=== PATIENT | male | born 1960 | race Caucasian/White ===

== ENCOUNTER 2021-03-20 11:09 | Outpatient (CLI) | payer OTHER, SELFPAY ==
--- NOTE | 2021-03-20 11:28 | ECG_ITS ---
Measurements Intervals [place] Rate: 65 P: 7 NE: 240 QRS: 31 QRSD: 106 T: 36 QT: 392 QTc: 410 Interpretive Statements SINUS RHYTHM WITH FIRST DEGREE AV BLOCK BASELINE ARTIFACT- I, II ,AVR, AVF ABNORMAL ECG Electronically Signed On 03-20-2021 19:38:19 [employer] ADMINISTRATOR by Dawit Willingham D.O.
== END 2021-03-20 11:10 | disposition home or self-care (01) ==
PROVIDERS: PCP Internal Medicine; Visit Provider Internal Medicine
DX: R03.0 Elevated blood-pressure reading, without diagnosis of hypertension (principal); I44.0 Atrioventricular block, first degree
CPT/HCPCS: 93005

== ENCOUNTER 2021-05-19 00:34 | Day surgery (SDC) | payer OTHER, SELFPAY ==
[2021-05-05 11:22] VITALS: BMI 32.5
--- NOTE | 2021-05-19 08:29 | WPDANESEPPF ---
Anes - Initial Pre Proc Eval Procedure: Operation Date: 05/19/21 11:00 Proposed Procedures p Esophagogastroduodenoscopy & Screening Colonoscopy - David Fountain MD Date/Time: 05/19/21 08:29 Surgeon: David Fountain MD Pre Op Diagnosis: GERD, Neoplasm screening Patient Data Age: 60 Gender: M Height: 1.83 m Weight: 109 kg Allergies Allergy/AdvReac Type Severity Reaction Status Date / Time No Known Allergies Allergy Verified 05/19/21 10:05 Home Medications Medication Instructions Recorded Confirmed Type ibuprofen 200 mg capsule 200 mg PO Q6H PRN 03/10/21 05/19/21 History omeprazole 20 mg capsule,delayed 20 mg PO DAILY #90 cap 03/10/21 05/19/21 Rx release rosuvastatin 20 mg tablet 20 mg PO DAILY #90 tablet 03/24/21 05/19/21 Rx ferrous sulfate 325 mg (65 mg 325 mg PO BID 90 Days #180 tablet 04/28/21 05/19/21 Rx iron) tablet lisinopril 20 mg tablet 20 mg PO DAILY #90 tablet 04/28/21 05/19/21 Rx sildenafil 100 mg tablet 100 mg PO DAILY PRN #30 tablet 04/28/21 05/19/21 Rx cholecalciferol (vitamin D3) 1,250 50,000 unit PO WEEKLY #10 cap 05/07/21 05/19/21 Rx mcg (50,000 unit) capsule Patient hx anesthesia problems: none Family hx anesthesia problems: none Results Review: All pre-operative results and documents have been reviewed as part of the pre-operative evaluation. [facility] Past Medical History Medical History (Updated 05/16/21 @ 12:20 by Kishan Velazquez DO) Dyslipidemia First degree AV block GERD (gastroesophageal reflux disease) Hypertension Leg pain Numbness Painful joint Snoring Vasectomy planned Family History Family History Father Cancer Mother Cancer Social History Social History (Updated 04/28/21 @ 10:00 by Karuna Chaney) Smoking packs per day: 0.25 Smoking cigarettes per day: 5.0 Years smoked: 10 Smoking pack-years: 2.50 Smoking status: Former smoker Tobacco type: cigarettes Second hand tobacco smoke exposure: No Smoking end date: 05/10/97 Alcohol intake: current Drinks per week: 20 Alcohol use details: Beer 6 a day Substance use: never Substance use type: does not use Living arrangements: with family Gender identity (if verbalized by the patient): Male Spiritual care concerns: No Anes - Eval Final PreProcedure Day of Procedure 05/19/21 08:29 Patient weight: obese Heart: regular rate and rhythm Lungs: clear to auscultation and normal air movement Airway: Mallampati scale class II Neurological: alert and oriented Last oral intake: >/= 8 hours ASA classification: III Emergent: no Anesthetic plan: proceed Anesthesia type and monitoring: general GIVS and standard monitoring Results Review: All pre-operative results and documents have been reviewed as part of the pre-operative evaluation. Informed Consent: The patient's anesthetic plan and its attendant risks and benefits were discussed with the patient/family/POA. Questions were solicited and answers provided to the satisfaction of the patient/family/POA.
[2021-05-19 10:06] VITALS: BP 118/86; PULSE 88; RESP 18; TEMP 36.1; O2SAT 98; BMI 31.6
[2021-05-19] MEDS: LACTATED RINGERS 1,000 ML 150 ML IV CONT (10:18)
--- NOTE | 2021-05-19 10:27 | PM.HPGS ---
History of Present Illness History of Present Illness Consent: Risks, benefits, and alternatives have been discussed and questions answered. Patient agrees to proceed with procedure. Chief complaint: GERD, Neoplasm screening Narrative: Brennan Varner is a 60 year old male with mild JAMA (microcytic), denies overt gib but never had scopes. Using omeprazole because gerd. Review of Systems Constitutional: Constitutional: Denies headache(s) and Denies weakness Eyes: Eyes: Denies blurry vision ENT: Reports Normal hearing present, Denies headache(s) and Denies neck pain Cardiovascular: Cardiovascular: Denies chest pain and Denies dyspnea Respiratory: Respiratory: Denies dyspnea Gastrointestinal: Gastrointestinal: Reports no additional gastrointestinal complaints Genitourinary: Genitourinary: Denies dysuria Musculoskeletal: Musculoskeletal: Denies neck pain Integumentary/Breasts: Skin/Breast: Denies dry skin Neurologic: Reports Normal hearing present, Denies headache(s) and Denies weakness Psychiatric: Psychiatric: Denies anxiety Endocrine: Endocrine: Denies change in body appearance Hematologic/Lymphatic: Hematologic/Lymphatic: Denies easy bleeding Allergic/Immunologic: Allergic/Immunologic: Denies urticaria PMFSH Past Medical History Medical History (Updated 05/16/21 @ 12:20 by Kishan Velazquez DO) Dyslipidemia First degree AV block GERD (gastroesophageal reflux disease) Hypertension Leg pain Numbness Painful joint Snoring Vasectomy planned Family History Family History Father Cancer Mother Cancer Social History Social History (Updated 04/28/21 @ 10:00 by Karuna Chaney) Smoking packs per day: 0.25 Smoking cigarettes per day: 5.0 Years smoked: 10 Smoking pack-years: 2.50 Smoking status: Former smoker Tobacco type: cigarettes Second hand tobacco smoke exposure: No Smoking end date: 05/10/97 Alcohol intake: current Drinks per week: 20 Alcohol use details: Beer 6 a day Substance use: never Substance use type: does not use Living arrangements: with family Gender identity (if verbalized by the patient): Male Spiritual care concerns: No Meds Home Medications and Allergies Home Medications Medication Instructions Recorded Confirmed Type ibuprofen 200 mg capsule 200 mg PO Q6H PRN 03/10/21 05/19/21 History omeprazole 20 mg capsule,delayed 20 mg PO DAILY #90 cap 03/10/21 05/19/21 Rx release rosuvastatin 20 mg tablet 20 mg PO DAILY #90 tablet 03/24/21 05/19/21 Rx ferrous sulfate 325 mg (65 mg 325 mg PO BID 90 Days #180 tablet 04/28/21 05/19/21 Rx iron) tablet lisinopril 20 mg tablet 20 mg PO DAILY #90 tablet 04/28/21 05/19/21 Rx sildenafil 100 mg tablet 100 mg PO DAILY PRN #30 tablet 04/28/21 05/19/21 Rx cholecalciferol (vitamin D3) 1,250 50,000 unit PO WEEKLY #10 cap 05/07/21 05/19/21 Rx mcg (50,000 unit) capsule Allergies Allergy/AdvReac Type Severity Reaction Status Date / Time No Known Allergies Allergy Verified 05/19/21 10:05 Vital Signs Vital Signs - 24 hr 05/19/21 10:06 Temperature 97 F L Pulse Rate 88 Respiratory Rate 18 Blood Pressure 118/86 Pulse Oximetry 98 Exam Const: General: comfortable and no acute distress HENMT: General nose exam: Normal nares present Eyes: General: appearance normal, both eyes and all related structures Neck: Neck: no JVD Resp: Auscultation: clear to auscultation bilaterally Cardio: Rate: regular rate Rhythm: regular rhythm GI: Inspection: non-distended GI Palp: Yes Soft to palpation Skin: General skin exam: normal color Neuro: General: gait normal Speech: normal speech Extrem: General: normal to inspection Psych: Mental Status: mental status grossly normal Assessment and Plan Assessment and plan (1) GERD (gastroesophageal reflux disease): Qualifiers: Esophagitis presence: esophagit
[2021-05-19 11:04] VITALS: BP 119/79; PULSE 70; RESP 19; O2SAT 99
--- NOTE | 2021-05-19 11:12 | SUR.OPER ---
EGD: Start 10:37, End 10:40. Colon: Start 10:44, End 11:00
[2021-05-19 11:14] VITALS: BP 122/86; PULSE 71; RESP 22; O2SAT 98
[2021-05-19 11:24] VITALS: BP 138/95; PULSE 63; RESP 20; O2SAT 98
== END 2021-05-19 11:38 | disposition home or self-care (01) ==
PROVIDERS: PCP Internal Medicine; Visit Provider Internal Medicine Gastroenterology
PROC: 0DJ08ZZ Inspection of Upper Intestinal Tract, Via Natural or Artificial Opening Endoscopic (ICD-10-PCS; CPT 43235; principal; 2021-05-19 11:00)
DX: D50.9 Iron deficiency anemia, unspecified (principal); C18.6 Malignant neoplasm of descending colon; K57.30 Diverticulosis of large intestine without perforation or abscess without bleeding; K64.8 Other hemorrhoids; K29.50 Unspecified chronic gastritis without bleeding; D12.0 Benign neoplasm of cecum; K62.1 Rectal polyp; K21.9 Gastro-esophageal reflux disease without esophagitis; E78.5 Hyperlipidemia, unspecified; I44.0 Atrioventricular block, first degree; I10 Essential (primary) hypertension; Z87.891 Personal history of nicotine dependence; E66.9 Obesity, unspecified; Z68.31 Body mass index [BMI] 31.0-31.9, adult
CPT/HCPCS: 45385; 45380; 45381; 43239; 88305; J2704; J7120

== ENCOUNTER 2021-05-28 06:52 | Outpatient (CLI) | payer OTHER, SELFPAY ==
--- NOTE | ~2021-05-28 | CT_ITS ---
EXAMINATION: CT chest abdomen pelvis w con DATE: 05/28/2021 07:30 INDICATION: Malignant neoplasm of ascending colon TECHNIQUE: Computed tomography (CT) of the chest, abdomen, and pelvis was performed with 100 cc Omnip aque 350 intravenous contrast. Automated exposure control and iterative reconstruction technique were employed. Exam dose: 1554.90 mGy-cm total exam DLP. COMPARISON: None FINDINGS: CHEST CT: No pulmonary infiltrate or consolidation or suspicious pulmonary mass lesion. Normal heart size. No pericardial or pleural effusion. No thoracic aortic aneurysm or dissection. The re is atherosclerotic change of the thoracic aorta and great vessels. Homogeneous enhancement of normal size thyroid gland. No hilar or mediastinal mass lesion or lymphade nopathy. ABDOMEN/PELVIS CT: The gallbladder appears unremarkable. No hepatic, splenic, pancreatic, and adrenal or renal space-occ upying mass lesion is evident. No bile duct or pancreatic duct dilatation. No urinary tract calculus or hydroureteronephrosis. The urinary bladder is unremarkable. Minimal prostate gland calcification. Normal appendix. There are numerous diverticula of the sigmoid and descending colon; no CT evidence of diverticulitis. There is prominent soft tissue thickening of the proximal descending colon near the splenic flexure, measuring up to approximately 5.7 x 7.6 cm dimension, consistent with clinical history of malignant n eoplasm of the descending colon. Occasional adjacent lymph nodes measuring up to 8.6 x 11 mm, suggest ing local metastatic lymphadenopathy. Additionally, there is mild fat stranding adjacent to this mass which may represent local pericolic fat invasion. No bowel obstruction or intraperitoneal free air. There is atherosclerotic calcification of the abdominal aorta, iliac arteries, origins of the renal a rteries. No abdominal aortic aneurysm or dissection. No periaortic or aortocaval or pelvic lymphadeno nasra. Small fat-containing right inguinal hernia. Degenerative disc disease of the lower cervical spine. Diffuse idiopathic skeletal hyperostosis of th e thoracic spine. Prominent bilateral hip osteoarthritis. No suspicious osteolytic or osteoblastic le sions are noted. IMPRESSION: Large mass of the proximal descending colon consistent with given clinical diagnosis of adenocarcinoma of the descending colon, with suggestion of adjacent pericolic fat invasion and up to 8.6 x 11 mm adjacent metastatic lymphadenopathy Diverticulosis of the left colon; no CT evidence of diverticulitis Reviewed, dictated and finalized at [facility] Reviewed, dictated and finalized at [facility] WELDER IMPRESSION: Large mass of the proximal descending colon consistent with given clinical diagnosis of adenocarcinoma of the descending colon, with suggestion o f adjacent pericolic fat invasion and up to 8.6 x 11 mm adjacent metastatic lym phadenopathy Diverticulosis of the left colon; no CT evidence of diverticulitis
[2021-05-28 07:21] LABS: Estimated Glomerular Filt Rate > 60
== END 2021-05-28 06:53 | disposition home or self-care (01) ==
LOC: ANHIMG 06:55
PROVIDERS: PCP Internal Medicine; Visit Provider Surgery
DX: C18.6 Malignant neoplasm of descending colon (principal); C77.2 Secondary and unspecified malignant neoplasm of intra-abdominal lymph nodes; K57.90 Diverticulosis of intestine, part unspecified, without perforation or abscess without bleeding
CPT/HCPCS: 71260; 74177; Q9967

== ENCOUNTER 2021-06-17 10:04 | Outpatient (CLI) | payer OTHER, SELFPAY ==
[2021-06-17 12:00] LABS: Basophils Percent Auto 0.5 % (0.2-1.2); Eosinophils Absolute Auto 0.1 K/mm3 (0-0.3); Eosinophils Percent Auto 1.4 % (0-4.4); Hematocrit 43.4 % (42.0-52.0); Hemoglobin 14.6 g/dL (14.0-18.0); Immature Granulocyte Absolute 0.05 K/mm3 (0.00-0.031); Immature Granulocyte Percent A 0.6 % (0-0.5); Lymphocytes Absolute Auto 1.33 K/mm3 (0.9-3.2); Lymphocytes Percent Auto 15.6 % (18.3-44.2); Mean Corpuscular HGB Conc 33.6 g/dl (32-36); Mean Corpuscular Hemoglobin 29.9 pg (26-34); Mean Corpuscular Volume 88.8 fl (80-100); Mean Platelet Volume 9.1 fl (7.4-10.4); Monocytes Absolute Auto 0.8 K/mm3 (0.1-0.6); Monocytes Percent Auto 9.7 % (2.6-8.5); Neutrophils Absolute Auto 6.2 K/mm3 (1.3-6.7); Neutrophils Percent Auto 72.2 % (45.5-73.1); Platelet Count Result 168 k/mm3 (150-375); Red Blood Count 4.89 M/mm3 (4.6-6.20); Red Cell Distribution Width 16.1 % (11.5-14.5); White Blood Count 8.5 K/mm3 (4.5-10.0)
[2021-06-17 12:18] LABS: Alanine Aminotransferase 23 U/L (4-50); Albumin Level 4.5 g/dL (3.5-5.1); Alkaline Phosphatase 74 U/L (38-126); Anion Gap 7 mmol/L (8-16); Aspartate Amino Transferase 25 U/L (17-59); Bilirubin,Total 0.6 mg/dL (0.2-1.3); Blood Urea Nitrogen 11 mg/dL (9-20); Calcium 9.7 mg/dL (8.4-10.2); Carbon Dioxide 23 mmol/L (22-30); Chloride 104 mmol/L (98-107); Estimated Glomerular Filt Rate > 60; Glucose 117 mg/dL (65-110); Potassium 4.2 mmol/L (3.4-5.0); Sodium 134 mmol/L (137-145)
--- NOTE | 2021-06-19 12:12 | PCWOUND ---
WOCN NOTE patient to wound center for ostomy marking for upcoming surgery on 06/23/21. Both sides of abdomen assessed for optimal stoma site. A black X applied and then covered with a tegaderm.
== END 2021-06-17 10:05 | disposition home or self-care (01) ==
LOC: ANHSURGERY 10:07
PROVIDERS: PCP Internal Medicine; Visit Provider Surgery
DX: C18.6 Malignant neoplasm of descending colon (principal)
CPT/HCPCS: 36415; 80053; 82378; 85025; 86850; 86900; 86901

== ENCOUNTER 2021-06-23 10:43 | Inpatient (IN) | payer OTHER, SELFPAY ==
[2021-06-17 10:22] VITALS: BP 183/86; PULSE 60; RESP 16; TEMP 36.3; O2SAT 98; BMI 32.7
--- NOTE | 2021-06-17 10:37 | PC.NURSE ---
Report to the Outpatient Waiting Room, entrance under the green pavilion located off [facility], at time __6:00AM on date ___06/23/21____. OR Time: ___7:30AM . - You will be asked a series of questions to screen for COVID 19 for your protection. - A mask is required within the hospital. - No visitors are allowed at this time. Preoperative COVID Testing Requirements: No COVID Test needed if: (proof is required; if not received patient will have Rapid Test prior to entry) - Patient has received COVID Vaccine at least 14 days prior to procedure date or - Patient has positive COVID test result within last 90 days of surgery date. COVID Test needed if above criteria is not met If not COVID vaccinated a COVID test must be conducted within 72 hours of surgery and patient is asked to isolate self from time of testing until procedure. You will go to the [facility] for your COVID testing. The [facility] is located at the corner of [address] [facility]. You will only be called if COVID results are positive and your surgeon may reschedule your elective surgery date. Patients may have clear liquids (water, carbonated beverages, clear teas, apple juice) until 3 hours prior to surgery with a maximum of 20 ounces. - No food from midnight until time of surgery - Infants may have breast milk until 4 hours before surgery, infant formula 6 hours prior to surgery. - Children will be allowed to drink immediately following surgery. If applicable, please bring a bottle or sippy cup to assist with drinking. Juice, water, soda, and popsicles are readily available. For infants on formula, please bring formula the day of surgery. Pacifiers are allowed. Take the following medications with a SIP of water the morning of surgery: ___NONE Medications to discontinue per physician HOLD VITAMIN/SUPPLEMENTS 3 DAYS PRE-OP Date to take last dose___06/20/21 ENSURE BUNDLE, ANTIBIOTIC INSTRUCTIONS & BOWEL PREP INSTRUCTIONS PER DR MILES Please no make-up, nail indonesian, hairspray, perfume, deodorant, or body powder the day of surgery. No jewelry (including any body piercings) or valuables the day of surgery, leave them at home. Please take a shower or bath the night before, or the morning of, surgery with an antibacterial soap. Wear comfortable, loose fitting clothing. Children are encouraged to wear pajamas. - Jewelry must be removed prior to entering the operating room. Rings and piercings that are not removed may be cut off. - The hospital will not accept responsibility for valuables. - Please leave all valuables, including medications, at home the day of surgery. HIBICLENS SHOWER DAY BEFORE AND MORNING OF SURGERY If you are going home after surgery, a licensed waste collection driver must drive you home. - NO public transportation without another adult. - We recommend that an adult stay with you for 24 hours following discharge. - We also recommend that you do not drive, make important decision, drink alcoholic beverages, or take any drugs that were not prescribed by your health care provider for at least 24 hours after your discharge time. For Pediatric surgeries, we recommend two adults accompany the child home (only one inside the building at this time). Follow any additional instructions given to you from your surgeon. Telephone instructions given to ____PATIENT and asked if any additional questions and then verbalized understanding. Patient advised to call surgeon office or pre surgery nurse liaison [phone] if any additional questions.
[2021-06-23] VITALS (11 sets, daily range): BP systolic 119–168; BP diastolic 75–92; PULSE 65–98; RESP 15–21; TEMP 36.4–36.9; O2SAT 95–100; BMI 30.7
[2021-06-23] MEDS: KETOROLAC 15 MG/ML VIAL (*BKC) IV PUSH (07:10)
[2021-06-23] MEDS: LACTATED RINGERS 1,000 ML 30 ML IV CONT ×2 (07:10→14:05)
--- NOTE | 2021-06-23 07:10 | PM.HPGS ---
History of Present Illness History of Present Illness Consent: Risks, benefits, and alternatives have been discussed and questions answered. Patient agrees to proceed with procedure. Chief complaint: Adenocarcinoma of the Colon Narrative: Brennan Varner is a 60 year old white male who presented redcently to the office with a colon mass on the left discovered at colonoscopy and so seen at the request of Dr. Fountain. He underwent an EGD for anemia as well as a diagnostic colonoscopy by Dr. Hillary Che on 05/19/21. A protruding 45mm x 50mm circumferential, fungating, friable, infiltrative, malignant appearing mass was observed in the proximal descending (45-50cm from anal verge). Multiple biopsies were taken. An injection of spot ink was used distally and proximally to site. A few small- size internal hemorrhoids were seen in the rectum. The hemorrhoids were not actively bleeding. Pathology showed: Final Diagnosis A. CECAL POLYPS x3, ENDOSCOPIC COLD SNARE POLYPECTOMY: - TUBULAR ADENOMAS x3. B. DESCENDING COLON MASS, ENDOSCOPIC BIOPSY: - COLONIC ADENOCARCINOMA (SEE COMMENT). C. RECTAL POLYP, ENDOSCOPIC COLD SNARE POLYPECTOMY: - SESSILE SERRATED POLYP. Patient was started on Omeprazole for mild gastritis. He states he is doing well since colonoscopy. He is eating well and having daily BM's. He states today that he tolerated the bowel prep well. Review of Systems Review of Systems: Const All systems reviewed & are unremarkable except as noted in HPI and below Reports fatigue and Reports weight loss Eyes Denies change in vision and Denies loss of vision ENT Reports Normal hearing present, Denies headache(s), Denies neck pain and Denies throat swelling Card Denies chest pain and Denies dyspnea. History of hypertension on lisinopril. history of hyperlipidemia on rosuvastatin. Resp Denies cough, Denies dyspnea and Denies wheezing GI Reports nausea Has a HX of GERD and on recent endoscopy had some gastritis with out H pylori positive. Now on Prilosec once daily Denies hematuria and Denies difficulty urinating Muscsssss; Reports back pain and Reports neck pain Neuro Reports numbness Aller/Immun Denies throat swelling and Denies wheezing PMFSH Past Medical History Medical History Dyslipidemia First degree AV block GERD (gastroesophageal reflux disease) Hypertension Leg pain Mass of colon Numbness Painful joint Snoring Vasectomy planned Family History Family History Father Cancer Multiple Myeloma Mother Cancer Lung Social History Social History Smoking packs per day: 1 Smoking cigarettes per day: 20.0 Years smoked: 15 Smoking pack-years: 15.00 Smoking status: Former smoker Tobacco type: cigarettes Second hand tobacco smoke exposure: No Smoking end date: 11/07/98 Alcohol intake: current Drinks per week: 18 Alcohol use details: Beer 6 a day Substance use: never Substance use type: does not use Living arrangements: with family Additional living arrangements comments: 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 [employer] Gender identity (if verbalized by the patient): Male Spiritual care concerns: No Meds Home Medications and Allergies Home Medications Medication Instructions Recorded Confirmed Type ibuprofen 200 mg capsule 200 mg PO Q6H PRN 03/10/21 06/23/21 History omeprazole 20 mg capsule,delayed 20 mg PO DAILY #90 cap 03/10/21 06/23/21 Rx release rosuvastatin 20 mg tablet 20 mg PO DAILY #90 tablet 03/24/21 06/23/21 Rx ferrous sulfate 325 mg (65 mg 325 mg PO BID 90 Days #180 tablet 04/28/21 06/23/21 Rx iron) tablet sildenafil 100 mg tablet 100 mg PO DAILY PRN #30 tablet 04/28/21 06/17/21 Rx erythromycin 500 mg tablet 1 g PO
--- NOTE | 2021-06-23 07:21 | WPDHPUPDATE1 ---
History and Physical Update Update Date/Time: 06/23/21 07:21 History and Physical has been reviewed, including an updated exam of the patient. There are NO changes in the patient's condition. Risks, benefits, and alternatives have been discussed and questions answered. Patient agrees to proceed with procedure.
--- NOTE | 2021-06-23 07:22 | WPDANESEPPF ---
Anes - Initial Pre Proc Eval Procedure: Operation Date: 06/23/21 07:30 Proposed Procedures p Laparoscopic Hand Assisted Left Colectomy with Splenic Flexure Takedown, Possible Colostomy - Rajesh Astorga MD Date/Time: 06/23/21 07:22 Surgeon: Rajesh Astorga MD Pre Op Diagnosis: Adenocarcinoma of the Colon Patient Data Age: 60 Gender: M Height: 1.83 m Weight: 109.5 kg Last Vital Signs Temp 97.4 F L 06/17/21 10:22 Pulse 60 06/17/21 10:22 Resp 16 06/17/21 10:22 BP 183/86 H 06/17/21 10:22 Pulse Ox 98 06/17/21 10:22 Allergies Allergy/AdvReac Type Severity Reaction Status Date / Time No Known Allergies Allergy Verified 06/23/21 07:00 Home Medications Medication Instructions Recorded Confirmed Type ibuprofen 200 mg capsule 200 mg PO Q6H PRN 03/10/21 06/23/21 History omeprazole 20 mg capsule,delayed 20 mg PO DAILY #90 cap 03/10/21 06/23/21 Rx release rosuvastatin 20 mg tablet 20 mg PO DAILY #90 tablet 03/24/21 06/23/21 Rx ferrous sulfate 325 mg (65 mg 325 mg PO BID 90 Days #180 tablet 04/28/21 06/23/21 Rx iron) tablet sildenafil 100 mg tablet 100 mg PO DAILY PRN #30 tablet 04/28/21 06/17/21 Rx erythromycin 500 mg tablet 1 g PO .COMPLEX #6 tablet 06/03/21 06/23/21 Rx neomycin 500 mg tablet 1 g PO .COMPLEX #6 tablet 06/03/21 06/23/21 Rx cholecalciferol (vitamin D3) 50 mcg PO DAILY 06/17/21 06/23/21 History lisinopril 20 mg PO QAM 06/17/21 06/23/21 History Patient hx anesthesia problems: none Family hx anesthesia problems: none Results Review: All pre-operative results and documents have been reviewed as part of the pre-operative evaluation. [facility] Past Medical History Medical History Dyslipidemia First degree AV block GERD (gastroesophageal reflux disease) Hypertension Leg pain Mass of colon Numbness Painful joint Snoring Vasectomy planned Family History Family History Father Cancer Multiple Myeloma Mother Cancer Lung Social History Social History Smoking packs per day: 1 Smoking cigarettes per day: 20.0 Years smoked: 15 Smoking pack-years: 15.00 Smoking status: Former smoker Tobacco type: cigarettes Second hand tobacco smoke exposure: No Smoking end date: 11/07/98 Alcohol intake: current Drinks per week: 18 Alcohol use details: Beer 6 a day Substance use: never Substance use type: does not use Living arrangements: with family Additional living arrangements comments: 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 [employer] Gender identity (if verbalized by the patient): Male Spiritual care concerns: No Anes - Eval Final PreProcedure Day of Procedure 06/23/21 07:22 Patient weight: obese Heart: regular rate and rhythm Lungs: clear to auscultation Airway: Mallampati scale class III Neurological: alert and oriented Last oral intake: >/= 8 hours ASA classification: III Emergent: no Anesthetic plan: proceed Anesthesia type and monitoring: general ETT (have glidescope available) and standard monitoring Results Review: All pre-operative results and documents have been reviewed as part of the pre-operative evaluation. Informed Consent: The patient's anesthetic plan and its attendant risks and benefits were discussed with the patient/family/POA. Questions were solicited and answers provided to the satisfaction of the patient/family/POA.
[2021-06-23] MEDS: ACETAMINOPHEN 500 MG TABLET 1000 MG PO (07:30)
[2021-06-23] MEDS: ALVIMOPAN 12 MG CAPSULE PO ×2 (07:30→21:05)
[2021-06-23] MEDS: metroNIDAZOLE 500 MG/ISO 100ML 500 MG/100 ML BAG 100 MG IVPB ×3 (07:45→21:50)
[2021-06-23] MEDS: ceFAZolin 2 GM/D5W 50 ML 2 GM/50 ML BAG IVPB (07:45)
[2021-06-23] MEDS: BUPIVACAINE/EPINEPHRINE 0.5% 30 ML VIAL INFILTRATE (08:33)
--- NOTE | 2021-06-23 08:47 | SUR.OPER ---
see prep note for rectal irrigation/surgeon informed slight tinge of betadine and small area of bright blood on chux under buttock. Surgeon stated recent biopsy.
--- NOTE | 2021-06-23 10:10 | SUR.OPER ---
patient maintains positioning.
[2021-06-23] MEDS: ceFAZolin SODIUM 1 GM VIAL IV PUSH (11:39)
--- NOTE | 2021-06-23 13:45 | SUR.OPER ---
EBL 250ML
--- NOTE | 2021-06-23 13:46 | SUR.OPER ---
RECTAL TUBE REMOVED INTRA OP WITH SIGMOIDOSCOPY USE.
--- NOTE | 2021-06-23 14:39 | W.PM.PROC2 ---
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 Surgeon Rajesh Astorga MD Proof Technician Helper Tressa LONG, OR 1st assist Anesthesia general Indications The patient is a 60-year-old white male who recently had his 1st ever colonoscopy. Had at the time of colonoscopy was found to have a circumferential adenocarcinoma the descending colon. Spot ink was injected both above and below this site by Dr. Dorsey. Biopsy showed definite infiltrating adenocarcinoma of the colon consistent with development within a large polyp. Because of this the risks, benefits cut, and possible complications of a complete resection with anastomosis possible ostomy have been described to the patient and he seems understand wished to proceed. Findings There was a fairly large tumor mass which involved the very distal transverse colon on the left and was sitting somewhat twisted in the left upper quadrant as part of the splenic flexure of the colon. Somewhat thickened omentum was left attached to this portion of the colon and no small bowel was attached to it. There were no obvious liver metastasis on either the surface of the right or left lobe that could be seen. Description of Procedure Patient was brought to the operating room and positioned supine on the operative room table. Following this general anesthesia was induced by [facility] and an OG tube and Nj catheter were placed. Following this we placed the patient into low Burke stirrups /leg holders and the Betadine/ saline enema was given using a Malecot catheter. The Malecot catheter was left in place just above the anal sphincter. Following this Betadine was used to prep the perineum and chlorhexidine to prep the abdomen widely. The patient was then draped in the usual sterile fashion exposing the entire abdomen. Following this time-out was performed with the surgery team confirming patient and site of surgery being the abdomen and left colon. Following this we started by making a vertical midline incision starting approximately 5 cm above the umbilicus going through the umbilicus and about 1-2 cm below it. This left us with a 8 cm vertical defect in the midline fascia. The fascia was tented up and entered without any injury to the underlying viscera. Following this I swept my finger around the underside of this incision and then placed the wound protector that goes with the hand port. Hand port was then placed over the wound protector. My hand was lubricated with sterile KY jelly and we placed some on the hand port. Then placed my hand into the abdomen and we placed our 1st 5 mm port in the far lateral mid right abdomen. This was done after placing local anesthetic into the proposed area of skin making a small 5 mm incision and then inserting it directly with my hand underneath the port area protecting the underlying viscera. Following this we connected the CO2 gas insufflated the abdomen to 14 mmHg pressure CO2. We then placed a 0 degree 5 mm laparoscope into the abdomen and carefully inspected the abdomen. The omentum was flipped cephalad and we carefully examined the exposed tinea of the transverse colon starting at the midline and extending toward the left upper quadrant. Approximately 10 cm lateral to the midline we saw the spot ink on the colon. I was then able to feel the mass which was sitting right in the splenic flexure. We then turned our attention inferiorly on the left and carefully palpated the sigmoid colon which did not have any palpable masses and came all the way up along the white line of [place], laterally on the left, inspecting the descending colon all the way up to the splenic flexure. had was otherwise unremarkable. Following this we selected a site i
[2021-06-23] MEDS: fentaNYL CITRATE INJ (*CRX) 100 MCG/2 ML VIAL 25 MCG IV PUSH ×2 (14:57→15:09)
[2021-06-23] MEDS: MORPHINE SULFATE (*CRX) 4 MG/ML INJ IV PUSH ×5 (15:52→23:57)
[2021-06-23] MEDS: LACTATED RINGERS 1,000 ML 150 ML IV CONT (15:57)
[2021-06-23 16:23] LABS: Hematocrit 42.1 % (42.0-52.0); Hemoglobin 14.1 g/dL (14.0-18.0)
--- NOTE | 2021-06-23 16:26 | PC.NURSE ---
This patient, Brennan Varner, was admitted to [facility]. Patient oriented to hospital policies and general routines including ID bracelet, bed and alarms, visiting hours, pain management, procedures, bathroom and other care routines, personal items, smoking policy, room service/diet, and visiting hours. Information on how to activate the Rapid Response Team has been discussed. Patient IS encouraged to report perceived risks to care and to ask questions if they do not understand what they are told or what they should do.
[2021-06-23] MEDS: LACTATED RINGERS 1,000 ML 125 ML IV CONT (20:00)
[2021-06-24] MEDS: MORPHINE SULFATE (*CRX) 4 MG/ML INJ IV PUSH ×3 (01:54→05:58)
[2021-06-24 02:00] VITALS: BP 128/74; PULSE 78; RESP 20; TEMP 36.7; O2SAT 98
[2021-06-24] MEDS: metroNIDAZOLE 500 MG/ISO 100ML 500 MG/100 ML BAG 100 MG IVPB ×2 (04:00→09:42)
[2021-06-24 05:28] LABS: Basophils Percent Auto 0.2 % (0.2-1.2); Hematocrit 37.9 % (42.0-52.0); Hemoglobin 12.7 g/dL (14.0-18.0); Immature Granulocyte Absolute 0.06 K/mm3 (0.00-0.031); Immature Granulocyte Percent A 0.5 % (0-0.5); Lymphocytes Absolute Auto 0.97 K/mm3 (0.9-3.2); Lymphocytes Percent Auto 7.6 % (18.3-44.2); Mean Corpuscular HGB Conc 33.5 g/dl (32-36); Mean Corpuscular Hemoglobin 29.5 pg (26-34); Mean Corpuscular Volume 88.1 fl (80-100); Mean Platelet Volume 8.7 fl (7.4-10.4); Monocytes Absolute Auto 1.3 K/mm3 (0.1-0.6); Monocytes Percent Auto 10.3 % (2.6-8.5); Neutrophils Absolute Auto 10.5 K/mm3 (1.3-6.7); Neutrophils Percent Auto 81.4 % (45.5-73.1); Platelet Count Result 190 k/mm3 (150-375); Red Cell Distribution Width 15.4 % (11.5-14.5); White Blood Count 12.8 K/mm3 (4.5-10.0)
[2021-06-24 05:40] LABS: Anion Gap 7 mmol/L (8-16); Blood Urea Nitrogen 13 mg/dL (9-20); Calcium 7.9 mg/dL (8.4-10.2); Carbon Dioxide 24 mmol/L (22-30); Chloride 103 mmol/L (98-107); Estimated CRCL calculation 105 ml/min; Estimated Glomerular Filt Rate > 60; Glucose 158 mg/dL (65-110); Sodium 134 mmol/L (137-145)
[2021-06-24 06:00] VITALS: BP 148/86; PULSE 68; RESP 20; TEMP 37; O2SAT 100
[2021-06-24] MEDS: ENOXAPARIN 40 MG/0.4 ML SYRINGE SUB-Q (08:33)
[2021-06-24] MEDS: HYDROcodone/acetaminophen (*CRX) 5-325 MG TABLET 1 TAB PO (08:33)
[2021-06-24] MEDS: lisinopriL 20 MG TABLET PO (08:35)
[2021-06-24] MEDS: ALVIMOPAN 12 MG CAPSULE PO ×2 (08:35→21:01)
[2021-06-24] MEDS: PANTOPRAZOLE 40 MG TABLET PO ×2 (08:36→21:01)
--- NOTE | 2021-06-24 08:37 | PM.PNGS ---
Progress Note: A&P Assessment and Plan (1) Adenocarcinoma of descending colon: Onset Date: ~05/2021 Code(s): C18.6 - Malignant neoplasm of descending colon Status: Acute Assessment and Plan: Postop day 1 --doing well. Patient has bowel sounds but has not had flatus or bowel movement yet. Will begin having him increase his activity and try clear liquids. Will saline lock IV and try oral medications for pain. (2) BMI 32.0-32.9,adult: Onset Date: Unknown Code(s): Z68.32 - Body mass index [BMI] 32.0-32.9, adult Status: Acute Assessment and Plan: Have dietary consult mainly to discuss initial low-fiber diet x2 weeks then high fiber diet ( patient also needs to have limited calories and a low-sodium diet because of his hypertension). (3) First degree AV block: Code(s): I44.0 - Atrioventricular block, first degree Status: Acute (4) Hypertension: Onset Date: Unknown Qualifiers: Hypertension type: primary hypertension Qualified Code(s): I10 - Essential (primary) hypertension Code(s): I10 - Essential (primary) hypertension Status: Acute Assessment and Plan: Will resume patient's lisinopril this morning ( blood pressure slightly high on this morning's vitals) (5) Dyslipidemia: Onset Date: Unknown Code(s): E78.5 - Hyperlipidemia, unspecified Status: Acute Assessment and Plan: will hold on patient's medication until he goes home. Otherwise perhaps going on a high-fiber diet will help this. (6) GERD (gastroesophageal reflux disease): Onset Date: ~05/2021 Qualifiers: Esophagitis presence: esophagitis presence not specified Qualified Code(s): K21.9 - Gastro-esophageal reflux disease without esophagitis Code(s): K21.9 - Gastro-esophageal reflux disease without esophagitis Status: Acute Assessment and Plan: Signs of gastritis were also noted on his EGD in May. Will restart PPI here and ask him to do a twice a day for a month at home as he goes through the stress of this surgical intervention and the knowledge that he has cancer. Additional Plan Increase activity Try clear liquids Dry oral pain medication Patient to let the nurses know if he has a bowel movement. Time Spent With Patient Time with patient: less than 15 minutes Subjective Subjective Date/Time Seen: 06/24/21 08:37 Post Op day: 1 ( status post segmental left colectomy with anastomosis) Patient reports: no new complaints, no flatus and no bowel movement Interval history: patient denies nausea. He is sitting up in bed when I saw him. Pain seems to be well controlled. Review of Systems Review of Systems: All systems reviewed & are unremarkable except as noted in HPI and below Constitutional: Constitutional: Reports as per HPI, Denies chills and Denies fever(s) Cardiovascular: Cardiovascular: Denies chest pain and Denies dyspnea Respiratory: Respiratory: Reports no additional respiratory complaints and Denies dyspnea Gastrointestinal: Gastrointestinal: Reports as per HPI, Denies bloating, Denies nausea and Denies vomiting Genitourinary: Comments: No complaints about the Nj catheter. Will plan to get it out today Musculoskeletal: Musculoskeletal: Reports no additional musculoskeletal complaints Neurologic: Denies memory loss Psychiatric: Psychiatric: Denies anxiety and Denies memory loss Exam Const: General: cooperative, comfortable, alert and awake Orientation/consciousness: patient oriented x3 HENMT: Head: normal to inspection Mouth: Yes moist mucous membranes Eyes: Sclera: sclerae normal Pupils: Equal, round and reactive pupils present Neck: Neck: normal visual inspection and no JVD Chest: Chest palpation & inspection: normal inspection of the chest Resp: Effort & Inspection: normal respiratory effort Auscultation: clear to auscultation bilaterally Cardio: Jugular ve
--- NOTE | 2021-06-24 09:54 | WPDANESPN ---
Anes - Prog Note Post-Op Date/Time: 06/24/21 09:54 Cardiovascular status: normal Respiratory status: normal Airway patency: baseline Mental status: baseline Post-Op hydration status: normal Vital Signs: Last Vital Signs Temp 37.0 C 06/24/21 06:00 Pulse 68 06/24/21 06:00 Resp 20 06/24/21 06:00 BP 148/86 H 06/24/21 06:00 Pulse Ox 100 06/24/21 06:00 Pain Score (VAS): 0 I/O: Intake & Output 06/23/21 06/24/21 06/24/21 23:59 07:59 15:59 Intake Total 450 150 240 Output Total 270 1000 700 Balance 055 -655 -386 Laboratory Tests 06/24/21 05:17 06/24/21 05:17 06/23/21 06/24/21 06/24/21 15:58 05:17 05:17 WBC 12.8 H RBC 4.30 L Hgb 14.1 12.7 L Hct 42.1 37.9 L MCV 88.1 MCH 29.5 MCHC 33.5 RDW 15.4 H Plt Count 190 MPV 8.7 Immature Gran % (Auto) 0.5 Neut % (Auto) 81.4 H Lymph % (Auto) 7.6 L Valencia % (Auto) 10.3 H Eos % (Auto) 0.0 Baso % (Auto) 0.2 Lymph # (Auto) 0.97 Valencia # (Auto) 1.3 H Eos # (Auto) 0.0 Baso # (Auto) 0.0 Abs Immat Gran (auto) 0.06 H Absolute Neuts (auto) 10.5 H Absolute Nucleated RBC 0.0 Nucleated RBC % 0.0 Sodium 134 L Potassium 4.0 Chloride 103 Carbon Dioxide 24 Anion Gap 7 L BUN 13 Creatinine 0.80 Estim Creat Clear Calc 105 Estimated GFR > 60 Glucose 158 H Calcium 7.9 L Post-procedural complaints: none Patient Feedback: Patient satisfied with anesthetic care.
[2021-06-24] MEDS: ONDANSETRON INJ 4 MG/2 ML VIAL IV PUSH ×2 (11:35→17:14)
[2021-06-24] MEDS: MAG HYDROX/AL HYDROX/SIMETH 30 ML UDC PO (12:22)
--- NOTE | 2021-06-24 12:22 | PC.NURSE ---
Addendum entered by Evangelina Kenny, TRAFFIC ENGINEERING DIRECTOR 06/24/21 12:24: Dr. Astorga also instructed to have patient stay NPO for 2 hours, then reassess. Original Note: [address] Astorga in regards to worsening acid reflux. Dr. Astorga gave verbal order for mylanta and to increase frequency of protonix. See MAR for specific dosing and instruction.
[2021-06-24 14:00] VITALS: BP 142/84; PULSE 98; RESP 16; TEMP 36.4; O2SAT 95
[2021-06-24] MEDS: PANTOPRAZOLE SODIUM IV 40 MG VIAL IV PUSH (14:41)
[2021-06-24] MEDS: SODIUM CHLORIDE 0.9% IV 1,000 ML 90 ML IV CONT (14:42)
[2021-06-24] MEDS: MORPHINE SULFATE (*CRX) 2 MG/ML INJ IV PUSH (14:45)
--- NOTE | 2021-06-24 14:57 | PC.NURSE ---
Dr Astorga assessed patient and ordered a one time dose of IV protonix for acid reflux. Dr. Astorga also wanted IV fluids started on patient and ice chips available for patient, one cup full per 4 hours. See MAR for medication dosage and times.
[2021-06-24 17:34] VITALS: BP 142/84; PULSE 93; RESP 16; TEMP 36.6; O2SAT 94
[2021-06-24 20:00] VITALS: BP 131/80; PULSE 105; RESP 20; TEMP 37.3; O2SAT 93
[2021-06-24 22:00] VITALS: RESP 20
[2021-06-25 00:05] VITALS: BP 150/91; PULSE 98; RESP 20; TEMP 37.2; O2SAT 94
[2021-06-25] MEDS: SODIUM CHLORIDE 0.9% IV 1,000 ML 110 ML IV CONT ×2 (00:09→09:30)
[2021-06-25] MEDS: MORPHINE SULFATE (*CRX) 4 MG/ML INJ IV PUSH (00:10)
[2021-06-25] MEDS: MORPHINE SULFATE (*CRX) 2 MG/ML INJ IV PUSH (04:25)
[2021-06-25 06:15] VITALS: BP 148/86; PULSE 76; RESP 20; TEMP 37.2; O2SAT 94
[2021-06-25 06:19] LABS: Basophils Percent Auto 0.1 % (0.2-1.2); Eosinophils Percent Auto 0.2 % (0-4.4); Hematocrit 34.4 % (42.0-52.0); Hemoglobin 11.6 g/dL (14.0-18.0); Immature Granulocyte Absolute 0.04 K/mm3 (0.00-0.031); Immature Granulocyte Percent A 0.4 % (0-0.5); Lymphocytes Absolute Auto 1.17 K/mm3 (0.9-3.2); Lymphocytes Percent Auto 12.1 % (18.3-44.2); Mean Corpuscular HGB Conc 33.7 g/dl (32-36); Mean Corpuscular Hemoglobin 30.7 pg (26-34); Mean Platelet Volume 8.7 fl (7.4-10.4); Monocytes Percent Auto 10.6 % (2.6-8.5); Neutrophils Absolute Auto 7.4 K/mm3 (1.3-6.7); Neutrophils Percent Auto 76.6 % (45.5-73.1); Platelet Count Result 142 k/mm3 (150-375); Red Blood Count 3.78 M/mm3 (4.6-6.20); Red Cell Distribution Width 15.3 % (11.5-14.5); White Blood Count 9.7 K/mm3 (4.5-10.0)
[2021-06-25 06:43] LABS: Anion Gap 5 mmol/L (8-16); Blood Urea Nitrogen 12 mg/dL (9-20); Calcium 8.3 mg/dL (8.4-10.2); Carbon Dioxide 25 mmol/L (22-30); Chloride 105 mmol/L (98-107); Estimated CRCL calculation 109 ml/min; Estimated Glomerular Filt Rate > 60; Glucose 126 mg/dL (65-110); Potassium 3.8 mmol/L (3.4-5.0); Sodium 135 mmol/L (137-145)
[2021-06-25 08:00] VITALS: PULSE 76; RESP 20; O2SAT 94
[2021-06-25] MEDS: ALVIMOPAN 12 MG CAPSULE PO ×2 (09:15→20:36)
[2021-06-25] MEDS: PANTOPRAZOLE 40 MG TABLET PO ×2 (09:15→20:39)
[2021-06-25] MEDS: ENOXAPARIN 40 MG/0.4 ML SYRINGE SUB-Q (09:15)
[2021-06-25] MEDS: lisinopriL 20 MG TABLET PO (09:15)
[2021-06-25] MEDS: HYDROcodone/acetaminophen (*CRX) 7.5-325 MG TABLET 1 TAB PO ×4 (09:30→22:13)
[2021-06-25 09:59] VITALS: BP 158/75; PULSE 76; RESP 18; TEMP 36.6; O2SAT 97
--- NOTE | 2021-06-25 10:55 | PCDIET ---
Nutrition consult for diet education. See Nutritional Teaching Intervention. Thank you for the consult.
[2021-06-25 14:00] VITALS: BP 151/92; PULSE 75; RESP 18; TEMP 37.1; O2SAT 96
--- NOTE | 2021-06-25 18:38 | PM.PNGS ---
Progress Note: A&P Assessment and Plan (1) Adenocarcinoma of descending colon: Onset Date: ~05/2021 Code(s): C18.6 - Malignant neoplasm of descending colon Status: Acute Assessment and Plan: Postop day 2 --doing well. Patient has bowel sounds and now has had flatus and a loose bowel movement . Will begin having him increase his activity and try full liquids. Will saline lock IV and try oral medications for pain. (2) BMI 32.0-32.9,adult: Onset Date: Unknown Code(s): Z68.32 - Body mass index [BMI] 32.0-32.9, adult Status: Acute Assessment and Plan: Have dietary consult mainly to discuss initial low-fiber diet x2 weeks then high fiber diet ( patient also needs to have limited calories and a low-sodium diet because of his hypertension). (3) First degree AV block: Code(s): I44.0 - Atrioventricular block, first degree Status: Acute (4) Hypertension: Onset Date: Unknown Qualifiers: Hypertension type: primary hypertension Qualified Code(s): I10 - Essential (primary) hypertension Code(s): I10 - Essential (primary) hypertension Status: Acute Assessment and Plan: Have resumed patient's lisinopril ( blood pressure slightly high on this morning's vitals) (5) Dyslipidemia: Onset Date: Unknown Code(s): E78.5 - Hyperlipidemia, unspecified Status: Acute Assessment and Plan: will hold on patient's medication for this until he goes home. Otherwise perhaps going on a high-fiber diet will help this. (6) GERD (gastroesophageal reflux disease): Onset Date: ~05/2021 Qualifiers: Esophagitis presence: esophagitis presence not specified Qualified Code(s): K21.9 - Gastro-esophageal reflux disease without esophagitis Code(s): K21.9 - Gastro-esophageal reflux disease without esophagitis Status: Acute Assessment and Plan: Signs of gastritis were also noted on his EGD in May. Will restart PPI here and ask him to do a twice a day for a month at home as he goes through the stress of this surgical intervention and the knowledge that he has cancer. Additional Plan Increase activity & DC frank Try full liquids Try oral pain medication again later today Patient to let the nurses know if he has a bowel movement. Subjective Subjective Date/Time Seen: 06/25/21 18:38 Post Op day: 2 (Status post segmental left colectomy for cancer) Patient reports: no new complaints, feels better, flatus and bowel movement Interval history: The patient is no longer nauseated. Use able to take sips through the night along with his oral medications. He has now had 2 slightly loose bowel movements and is no longer having much reflux symptoms. Pain is better controlled today also. Review of Systems Review of Systems: All systems reviewed & are unremarkable except as noted in HPI and below Constitutional: Constitutional: Reports as per HPI, Denies chills and Denies fever(s) Cardiovascular: Cardiovascular: Denies chest pain and Denies dyspnea Respiratory: Respiratory: Reports no additional respiratory complaints and Denies dyspnea Gastrointestinal: Gastrointestinal: Reports as per HPI, Denies bloating, Denies nausea and Denies vomiting ( Except once last evening.) Musculoskeletal: Musculoskeletal: Reports no additional musculoskeletal complaints Neurologic: Denies memory loss Psychiatric: Psychiatric: Denies anxiety and Denies memory loss Exam Const: General: cooperative, comfortable, alert and awake Orientation/consciousness: patient oriented x3 HENMT: Head: normal to inspection Mouth: Yes moist mucous membranes Neck: Neck: normal visual inspection and no JVD Chest: Chest palpation & inspection: normal inspection of the chest Resp: Effort & Inspection: normal respiratory effort Auscultation: clear to auscultation bilaterally Cardio: Jugular venous distension: no JVD Rate: regular ra
[2021-06-25 22:00] VITALS: BP 177/82; PULSE 70; RESP 20; TEMP 37.1; O2SAT 97
[2021-06-26] MEDS: HYDROcodone/acetaminophen (*CRX) 7.5-325 MG TABLET 1 TAB PO ×2 (03:21→07:19)
[2021-06-26 05:39] LABS: Basophils Percent Auto 0.3 % (0.2-1.2); Eosinophils Absolute Auto 0.1 K/mm3 (0-0.3); Eosinophils Percent Auto 1.1 % (0-4.4); Hematocrit 34.1 % (42.0-52.0); Hemoglobin 11.5 g/dL (14.0-18.0); Immature Granulocyte Absolute 0.07 K/mm3 (0.00-0.031); Immature Granulocyte Percent A 0.8 % (0-0.5); Lymphocytes Absolute Auto 1.11 K/mm3 (0.9-3.2); Mean Corpuscular HGB Conc 33.7 g/dl (32-36); Mean Corpuscular Hemoglobin 30.8 pg (26-34); Mean Corpuscular Volume 91.4 fl (80-100); Mean Platelet Volume 8.7 fl (7.4-10.4); Monocytes Absolute Auto 0.9 K/mm3 (0.1-0.6); Monocytes Percent Auto 9.6 % (2.6-8.5); Neutrophils Percent Auto 76.2 % (45.5-73.1); Platelet Count Result 150 k/mm3 (150-375); Red Blood Count 3.73 M/mm3 (4.6-6.20); White Blood Count 9.2 K/mm3 (4.5-10.0)
[2021-06-26 05:48] LABS: Alanine Aminotransferase 18 U/L (4-50); Albumin Level 3.5 g/dL (3.5-5.1); Alkaline Phosphatase 55 U/L (38-126); Anion Gap 9 mmol/L (8-16); Aspartate Amino Transferase 36 U/L (17-59); Bilirubin,Total 0.6 mg/dL (0.2-1.3); Blood Urea Nitrogen 12 mg/dL (9-20); Calcium 8.4 mg/dL (8.4-10.2); Carbon Dioxide 22 mmol/L (22-30); Chloride 103 mmol/L (98-107); Estimated CRCL calculation 109 ml/min; Estimated Glomerular Filt Rate > 60; Glucose 119 mg/dL (65-110); Potassium 3.7 mmol/L (3.4-5.0); Sodium 134 mmol/L (137-145)
[2021-06-26 06:10] VITALS: BP 147/72; PULSE 76; RESP 20; O2SAT 96
[2021-06-26 08:12] VITALS: PULSE 76; RESP 20; O2SAT 96
[2021-06-26] MEDS: ALVIMOPAN 12 MG CAPSULE PO (09:00)
[2021-06-26] MEDS: PANTOPRAZOLE 40 MG TABLET PO (09:00)
[2021-06-26] MEDS: lisinopriL 20 MG TABLET PO (09:00)
[2021-06-26] MEDS: ENOXAPARIN 40 MG/0.4 ML SYRINGE SUB-Q (09:00)
[2021-06-26] MEDS: HYDROcodone/acetaminophen (*CRX) 5-325 MG TABLET 1 TAB PO (12:14)
[2021-06-26 13:37] VITALS: BP 160/87; PULSE 74; RESP 18; O2SAT 98
--- NOTE | 2021-06-26 13:38 | PM.DS ---
DS: Admitting Diagnosis Discharge Date 06/26/2021 Admitting Diagnosis adenocarcinoma of the descending colon DS: Discharge Diagnosis Discharge Diagnosis (1) Adenocarcinoma of descending colon: Onset Date: ~05/2021 Code(s): C18.6 - Malignant neoplasm of descending colon Status: Acute Assessment and Plan: The pathology report discussed with patient prior to discharge. I believe it is a good report. Although the tumor went through the entire wall of the colon we did have negative margins in all directions. Also 0/18 lymph nodes were positive. Patient was happy with this report and he will remember to basically tell his that tumor was all the way through the wall of the colon but that all lymph nodes were negative and that was a grade 1 tumor as far as tumor aggressiveness. All questions were answered and he will follow up in the office with any other questions. (2) BMI 32.0-32.9,adult: Onset Date: Unknown Code(s): Z68.32 - Body mass index [BMI] 32.0-32.9, adult Status: Acute Assessment and Plan: Patient will go on a low-fat low-salt diet after he recovers from his surgery. He knows he should consider losing some weight in a stepwise fashion. (3) First degree AV block: Code(s): I44.0 - Atrioventricular block, first degree Status: Acute Assessment and Plan: This was really not addressed during this admission. He had no difficulties under anesthesia with his heart rhythm or heart function. (4) Hypertension: Onset Date: Unknown Qualifiers: Hypertension type: primary hypertension Qualified Code(s): I10 - Essential (primary) hypertension Code(s): I10 - Essential (primary) hypertension Status: Acute Assessment and Plan: During the postoperative. The patient pretty much always ran a slightly elevated blood pressure even though he was restarted on his daily lisinopril. I encouraged him to set up an appointment with Dr. Almonte to discuss this in about 3-4 weeks to see if he needs an increased dose or has any other need for changes. He will also take his blood pressure morning and evening and record readings to take in with him to the office when he goes. (5) Dyslipidemia: Onset Date: Unknown Code(s): E78.5 - Hyperlipidemia, unspecified Status: Acute Assessment and Plan: Patient to resume his rosuvastatin (6) Iron deficiency anemia: Qualifiers: Iron deficiency anemia type: unspecified iron deficiency Qualified Code(s): D50.9 - Iron deficiency anemia, unspecified Code(s): D50.9 - Iron deficiency anemia, unspecified Status: Acute Assessment and Plan: I have asked the patient to stay off his iron tablets for 1 week then he will resume them for the 1st week taking him just once a day and then up to twice a day as long as he is not constipated. Hemoglobin on discharge was 11.4. (7) GERD (gastroesophageal reflux disease): Onset Date: ~05/2021 Qualifiers: Esophagitis presence: esophagitis presence not specified Qualified Code(s): K21.9 - Gastro-esophageal reflux disease without esophagitis Code(s): K21.9 - Gastro-esophageal reflux disease without esophagitis Status: Acute Assessment and Plan: Patient had some fairly bad GE reflux on postop day 1. However he then had a large emesis and most of this cleared up after that. We did increase his PPI to Protonix 40 mg twice a day and I will give him a prescription to take this at home for 1 week also. Then my instructions were for him to take the Omeprazole 20 mg twice a day for 1 week then cut back to his usual once a day dose the following week. He knows he can call the office if he has increased trouble with this. (8) Pre-diabetes: Code(s): R73.03 - Prediabetes Status: Acute Assessment and Plan: Patient had a slightly elevated glucose on almost all labs done
== END 2021-06-26 13:41 | disposition home or self-care (01) | DRG 331 ==
LOC: ANHSUROVER 06-26 13:07 → ANH3MEDSUR 06-30 09:25 → ANHSUROVER 06-30 09:25
PROVIDERS: Admitting Provider Surgery; PCP Internal Medicine; Visit Provider Surgery
PROC: 0D1E4Z4 Bypass Large Intestine to Cutaneous, Percutaneous Endoscopic Approach (ICD-10-PCS; principal; 2021-06-23 07:30)
DX: C18.6 Malignant neoplasm of descending colon (principal); I44.0 Atrioventricular block, first degree; E78.5 Hyperlipidemia, unspecified; I10 Essential (primary) hypertension; D50.9 Iron deficiency anemia, unspecified; K21.9 Gastro-esophageal reflux disease without esophagitis; R73.03 Prediabetes; E66.9 Obesity, unspecified; Z68.32 Body mass index [BMI] 32.0-32.9, adult; Z87.891 Personal history of nicotine dependence
CPT/HCPCS: 36415; 80048; 80053; 83735; 85014; 85018; 85025; 88305; 88309; A9270; C1729; C9113; J0690; J1100; J1170; J1650; J1885; J2250; J2270; J2370; J2405; J2704; J2710; J3010; J7030; J7120

== ENCOUNTER 2021-10-08 09:29 | Outpatient (CLI) | payer OTHER, SELFPAY ==
--- NOTE | ~2021-10-08 | CT_ITS ---
EXAMINATION: CT abdomen pelvis wo con DATE: 10/08/2021 10:02 INDICATION: Colon cancer TECHNIQUE: Computed tomography (CT) of the abdomen and pelvis was performed without intravenous contr ast. The dose-length product (DLP) was 973.55 mGy-cm. Automated exposure control and iterative recons truction technique were employed. COMPARISON: 05/28/2021 FINDINGS: The lung bases are clear. The heart size is normal. The liver, spleen, pancreas, gallbladde r, and adrenal glands are normal. The kidneys are unremarkable. No pathologically enlarged abdominal or pelvic lymph nodes are identified. There is no free intraperitoneal gas or evidence of bowel obstr uction. There are changes of interval mass resection at the distal transverse colon. A few areas of s urrounding postoperative fat necrosis are identified. No residual or recurrent mass is seen. Colonic diverticulosis is present without evidence of diverticulitis. There is calcified atherosclerosis of t he aorta and many of the other arteries. There is mild lumbar spondylosis. IMPRESSION: 1. Changes related to interval mass resection in the distal colon without evidence of residual or rec urrent neoplasm. No metastatic disease identified. Reviewed, dictated and finalized at location F. IMPRESSION: 1. Changes related to interval mass resection in the distal colon without evide nce of residual or recurrent neoplasm. No metastatic disease identified.
== END 2021-10-08 09:30 | disposition home or self-care (01) ==
PROVIDERS: PCP Internal Medicine; Visit Provider Internal Medicine Hematology & Oncology
DX: C18.9 Malignant neoplasm of colon, unspecified (principal); K63.89 Other specified diseases of intestine; D50.9 Iron deficiency anemia, unspecified; K57.30 Diverticulosis of large intestine without perforation or abscess without bleeding; I70.0 Atherosclerosis of aorta; M47.816 Spondylosis without myelopathy or radiculopathy, lumbar region
CPT/HCPCS: 74176

== ENCOUNTER 2022-04-16 08:57 | Outpatient (CLI) | payer OTHER, SELFPAY ==
--- NOTE | 2022-04-16 09:12 | ECG_ITS ---
Measurements Intervals [place] Rate: 64 P: 34 VA: 275 QRS: 52 QRSD: 91 T: 62 QT: 376 QTc: 390 Interpretive Statements SINUS RHYTHM WITH FIRST DEGREE AV BLOCK COMPARED TO ECG 03/20/2021 11:33:21 NO SIGNIFICANT CHANGES Electronically Signed On 04-17-2022 7:25:32 RN MANAGED CARE by Jeremiah Clancy M.D.
[2022-04-16 10:02] LABS: Hematocrit 42.7 % (42.0-52.0); Hemoglobin 14.6 g/dL (14.0-18.0)
[2022-04-16 10:05] LABS: Albumin Level 4.7 g/dL (3.5-5.1); Estimated Glomerular Filt Rate > 60; Glucose 114 mg/dL (65-110)
[2022-04-16 10:19] LABS: Urine Cotinine NEGATIVE
[2022-04-16 11:01] LABS: Hemoglobin A1C 5.6 % (<5.7)
== END 2022-04-16 08:58 | disposition home or self-care (01) ==
LOC: ANHLAB 08:59
PROVIDERS: PCP Internal Medicine; Visit Provider Orthopaedic Surgery
DX: M16.0 Bilateral primary osteoarthritis of hip (principal); R73.01 Impaired fasting glucose; R73.03 Prediabetes; E78.5 Hyperlipidemia, unspecified; Z79.899 Other long term (current) drug therapy; I10 Essential (primary) hypertension; I44.0 Atrioventricular block, first degree
CPT/HCPCS: 80307; 82040; 82565; 82947; 83036; 85014; 85018; 93005

== ENCOUNTER 2022-06-03 09:38 | Outpatient (CLI) | payer OTHER, SELFPAY ==
[2022-06-03 11:02] LABS: Basophils Absolute Auto 0.1 K/mm3 (0.0-0.1); Basophils Percent Auto 0.8 % (0.2-1.2); Eosinophils Absolute Auto 0.3 K/mm3 (0-0.3); Hematocrit 45.4 % (42.0-52.0); Hemoglobin 15.5 g/dL (14.0-18.0); Immature Granulocyte Absolute 0.05 K/mm3 (0.00-0.031); Immature Granulocyte Percent A 0.6 % (0-0.5); Lymphocytes Absolute Auto 1.48 K/mm3 (0.9-3.2); Lymphocytes Percent Auto 18.5 % (18.3-44.2); Mean Corpuscular HGB Conc 34.1 g/dl (32-36); Mean Corpuscular Hemoglobin 31.1 pg (26-34); Mean Platelet Volume 8.9 fl (7.4-10.4); Monocytes Absolute Auto 0.7 K/mm3 (0.1-0.6); Monocytes Percent Auto 8.9 % (2.6-8.5); Neutrophils Absolute Auto 5.4 K/mm3 (1.3-6.7); Neutrophils Percent Auto 67.2 % (45.5-73.1); Platelet Count Result 157 k/mm3 (150-375); Red Blood Count 4.99 M/mm3 (4.6-6.20); Red Cell Distribution Width 12.8 % (11.5-14.5)
[2022-06-03 11:06] LABS: Albumin Level 4.4 g/dL (3.5-5.1); Estimated Glomerular Filt Rate > 60; Glucose 111 mg/dL (65-110)
[2022-06-03 11:24] LABS: Urine Cotinine NEGATIVE
== END 2022-06-03 09:39 | disposition home or self-care (01) ==
PROVIDERS: PCP Internal Medicine; Visit Provider Orthopaedic Surgery
DX: M16.11 Unilateral primary osteoarthritis, right hip (principal); Z01.818 Encounter for other preprocedural examination
CPT/HCPCS: 80307; 82040; 82565; 82947; 85025; 87081

== ENCOUNTER 2022-06-08 01:57 | Day surgery (SDC) | payer OTHER, SELFPAY ==
[2022-05-29 14:44] VITALS: BMI 32.5
[2022-06-08 13:25] VITALS: BP 164/95; PULSE 78; RESP 16; TEMP 36.3; O2SAT 98; BMI 34.0
[2022-06-08] MEDS: LACTATED RINGERS 1,000 ML 150 ML IV CONT (13:37)
--- NOTE | 2022-06-08 13:38 | WPDANESEPPF ---
Anes - Initial Pre Proc Eval Procedure: Operation Date: 06/08/22 15:00 Proposed Procedures p Colonoscopy - David Fountain MD Date/Time: 06/08/22 13:38 Surgeon: David Fountain MD Pre Op Diagnosis: hx colon ca Patient Data Age: 61 Gender: M Height: 1.83 m Weight: 113.6 kg Last Vital Signs Temp 97.4 F L 06/08/22 13:25 Pulse 78 06/08/22 13:25 Resp 16 06/08/22 13:25 BP 164/95 H 06/08/22 13:25 Pulse Ox 98 06/08/22 13:25 O2 Del Method Room Air 06/08/22 13:25 Allergies Allergy/AdvReac Type Severity Reaction Status Date / Time No Known Allergies Allergy Verified 06/08/22 13:23 Home Medications Medication Instructions Recorded Confirmed Type omeprazole 20 mg capsule,delayed 20 mg PO DAILY #90 caps 03/10/21 06/08/22 Rx release cholecalciferol (vitamin D3) 50 50 mcg PO DAILY 06/17/21 06/08/22 History mcg (2,000 unit) capsule sildenafil 100 mg tablet (Viagra) 100 mg PO DAILY PRN sexual 11/24/21 06/08/22 Rx activity #30 tabs losartan 50 mg tablet 50 mg PO DAILY #90 tabs 02/23/22 06/08/22 Rx rosuvastatin 20 mg tablet (Crestor) 20 mg PO DAILY #90 tabs 04/03/22 06/08/22 Rx ibuprofen 800 mg tablet 800 mg PO TID PRN pain #60 tabs 05/14/22 06/08/22 Rx Patient hx anesthesia problems: none Family hx anesthesia problems: none Results Review: All pre-operative results and documents have been reviewed as part of the pre-operative evaluation. [facility] Past Medical History Medical History Dyslipidemia (Unknown) First degree AV block GERD (gastroesophageal reflux disease) (~05/2021) Hypertension (Unknown) Leg pain Mass of colon Numbness Painful joint Snoring Vasectomy planned Surgical History Surgical History History of colon resection Hand assisted, laparoscopic left colon resection (distal transverse and proximal half of the descending colon). 06/23/21 Family History Family History Father Cancer Multiple Myeloma Mother Cancer Lung Social History Social History Smoking packs per day: 1 Smoking cigarettes per day: 20.0 Years smoked: 15 Smoking pack-years: 15.00 Smoking status: Former smoker Tobacco type: cigarettes Second hand tobacco smoke exposure: No Smoking end date: 05/10/89 Additional smoking assessment comments: DENIES ANY FORM OF TOBACCO USE Alcohol intake: current Drinks per week: 15 Alcohol use details: BEER Substance use: never Substance use type: does not use Lack of Transportation: No Lack of Food: Never True Current Housing: I Have Housing Concerned About Future Housing: No Difficulty Paying Gas/Electric Bills: No Difficulty Paying for Meds: No Currently Unemployed: No Education: High School Diploma/GED Difficulty w/ Childcare or Family Care: No Living arrangements: with family Additional living arrangements comments: Occupation/Education: occupation 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 Informed Consent: The patient's anesthetic plan and its attendant risks and benefits were discussed with the patient/family/POA. Qu
--- NOTE | 2022-06-08 13:39 | WPDANESEPPF ---
Anes - Initial Pre Proc Eval Procedure: Operation Date: 06/08/22 15:00 Proposed Procedures p Colonoscopy - David Fountain MD Date/Time: 06/08/22 13:39 Surgeon: David Fountain MD Pre Op Diagnosis: hx colon ca Patient Data Age: 61 Gender: M Height: 1.83 m Weight: 113.6 kg Last Vital Signs Temp 97.4 F L 06/08/22 13:25 Pulse 78 06/08/22 13:25 Resp 16 06/08/22 13:25 BP 164/95 H 06/08/22 13:25 Pulse Ox 98 06/08/22 13:25 O2 Del Method Room Air 06/08/22 13:25 Allergies Allergy/AdvReac Type Severity Reaction Status Date / Time No Known Allergies Allergy Verified 06/08/22 13:23 Home Medications Medication Instructions Recorded Confirmed Type omeprazole 20 mg capsule,delayed 20 mg PO DAILY #90 caps 03/10/21 06/08/22 Rx release cholecalciferol (vitamin D3) 50 50 mcg PO DAILY 06/17/21 06/08/22 History mcg (2,000 unit) capsule sildenafil 100 mg tablet (Viagra) 100 mg PO DAILY PRN sexual 11/24/21 06/08/22 Rx activity #30 tabs losartan 50 mg tablet 50 mg PO DAILY #90 tabs 02/23/22 06/08/22 Rx rosuvastatin 20 mg tablet (Crestor) 20 mg PO DAILY #90 tabs 04/03/22 06/08/22 Rx ibuprofen 800 mg tablet 800 mg PO TID PRN pain #60 tabs 05/14/22 06/08/22 Rx Patient hx anesthesia problems: none Family hx anesthesia problems: none Results Review: All pre-operative results and documents have been reviewed as part of the pre-operative evaluation. [facility] Past Medical History Medical History Dyslipidemia (Unknown) First degree AV block GERD (gastroesophageal reflux disease) (~05/2021) Hypertension (Unknown) Leg pain Mass of colon Numbness Painful joint Snoring Vasectomy planned Surgical History Surgical History History of colon resection Hand assisted, laparoscopic left colon resection (distal transverse and proximal half of the descending colon). 06/23/21 Family History Family History Father Cancer Multiple Myeloma Mother Cancer Lung Social History Social History Smoking packs per day: 1 Smoking cigarettes per day: 20.0 Years smoked: 15 Smoking pack-years: 15.00 Smoking status: Former smoker Tobacco type: cigarettes Second hand tobacco smoke exposure: No Smoking end date: 05/10/89 Additional smoking assessment comments: DENIES ANY FORM OF TOBACCO USE Alcohol intake: current Drinks per week: 15 Alcohol use details: BEER Substance use: never Substance use type: does not use Lack of Transportation: No Lack of Food: Never True Current Housing: I Have Housing Concerned About Future Housing: No Difficulty Paying Gas/Electric Bills: No Difficulty Paying for Meds: No Currently Unemployed: No Education: High School Diploma/GED Difficulty w/ Childcare or Family Care: No Living arrangements: with family Additional living arrangements comments: Occupation/Education: occupation 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 Informed Consent: The patient's anesthetic plan and its attendant risks and benefits were discussed with the patient/family/POA. Qu
--- NOTE | 2022-06-08 13:54 | PM.HPGS ---
History of Present Illness History of Present Illness Consent: Risks, benefits, and alternatives have been discussed and questions answered. Patient agrees to proceed with procedure. Chief complaint: hx colon ca Narrative: Brennan Varner is a 61 year old male with colon cancer in descending 1 year ago s/p surgery, here for surveillance and follow-up, denies any new problem Review of Systems Constitutional: Constitutional: Denies headache(s) and Denies weakness Eyes: Eyes: Denies blurry vision ENT: Reports Normal hearing present, Denies headache(s) and Denies neck pain Cardiovascular: Cardiovascular: Denies chest pain and Denies dyspnea Respiratory: Respiratory: Denies dyspnea Gastrointestinal: Gastrointestinal: Reports no additional gastrointestinal complaints Genitourinary: Genitourinary: Denies dysuria Musculoskeletal: Musculoskeletal: Denies neck pain Integumentary/Breasts: Skin/Breast: Denies dry skin Neurologic: Reports Normal hearing present, Denies headache(s) and Denies weakness Psychiatric: Psychiatric: Denies anxiety Endocrine: Endocrine: Denies change in body appearance Hematologic/Lymphatic: Hematologic/Lymphatic: Denies easy bleeding Allergic/Immunologic: Allergic/Immunologic: Denies urticaria PMFSH Past Medical History Medical History Dyslipidemia (Unknown) First degree AV block GERD (gastroesophageal reflux disease) (~05/2021) Hypertension (Unknown) Leg pain Mass of colon Numbness Painful joint Snoring Vasectomy planned Surgical History Surgical History History of colon resection Hand assisted, laparoscopic left colon resection (distal transverse and proximal half of the descending colon). 06/23/21 Family History Family History Father Cancer Multiple Myeloma Mother Cancer Lung Social History Social History Smoking packs per day: 1 Smoking cigarettes per day: 20.0 Years smoked: 15 Smoking pack-years: 15.00 Smoking status: Former smoker Tobacco type: cigarettes Second hand tobacco smoke exposure: No Smoking end date: 05/10/89 Additional smoking assessment comments: DENIES ANY FORM OF TOBACCO USE Alcohol intake: current Drinks per week: 15 Alcohol use details: BEER Substance use: never Substance use type: does not use Lack of Transportation: No Lack of Food: Never True Current Housing: I Have Housing Concerned About Future Housing: No Difficulty Paying Gas/Electric Bills: No Difficulty Paying for Meds: No Currently Unemployed: No Education: High School Diploma/GED Difficulty w/ Childcare or Family Care: No Living arrangements: with family Additional living arrangements comments: Occupation/Education: occupation 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[employer] Gender identity (if verbalized by the patient): Male Spiritual care concerns: No Meds Home Medications and Allergies Home Medications Medication Instructions Recorded Confirmed Type omeprazole 20 mg capsule,delayed 20 mg PO DAILY #90 caps 03/10/21 06/08/22 Rx release cholecalciferol (vitamin D3) 50 50 mcg PO DAILY 06/17/21 06/08/22 History mcg (2,000 unit) capsule sildenafil 100 mg tablet (Viagra) 100 mg PO DAILY PRN sexual 11/24/21 06/08/22 Rx activity #30 tabs losartan 50 mg tablet 50 mg PO DAILY #90 tabs 02/23/22 06/08/22 Rx rosuvastatin 20 mg tablet (Crestor) 20 mg PO DAILY #90 tabs 04/03/22 06/08/22 Rx ibuprofen 800 mg tablet 800 mg PO TID PRN pain #60 tabs 05/14/22 06/08/22 Rx Allergies Allergy/AdvReac Type Severity Reaction Status Date / Time No Known Allergies Allergy Verified 06/08/22 13:23 Vital Signs Vital Signs - 24 hr 06/08/22 13:25 Temperat
[2022-06-08 14:18] VITALS: BP 122/81; PULSE 79; RESP 19; O2SAT 97
[2022-06-08 14:28] VITALS: BP 135/87; PULSE 72; RESP 19; O2SAT 98
[2022-06-08 14:38] VITALS: BP 154/90; PULSE 79; RESP 20; O2SAT 98
== END 2022-06-08 14:52 | disposition home or self-care (01) ==
PROVIDERS: PCP Internal Medicine; Visit Provider Internal Medicine Gastroenterology
PROC: 0DJD8ZZ Inspection of Lower Intestinal Tract, Via Natural or Artificial Opening Endoscopic (ICD-10-PCS; CPT 45378; principal; 2022-06-08 15:00)
DX: Z08 Encounter for follow-up examination after completed treatment for malignant neoplasm (principal); K57.30 Diverticulosis of large intestine without perforation or abscess without bleeding; K51.40 Inflammatory polyps of colon without complications; D12.4 Benign neoplasm of descending colon; D12.0 Benign neoplasm of cecum; K64.8 Other hemorrhoids; Z85.038 Personal history of other malignant neoplasm of large intestine; Z98.0 Intestinal bypass and anastomosis status; Z90.49 Acquired absence of other specified parts of digestive tract; I10 Essential (primary) hypertension; E78.5 Hyperlipidemia, unspecified; K21.9 Gastro-esophageal reflux disease without esophagitis; I44.0 Atrioventricular block, first degree; Z87.891 Personal history of nicotine dependence; E66.9 Obesity, unspecified; Z68.34 Body mass index [BMI] 34.0-34.9, adult
CPT/HCPCS: 45385; 45380; 88305; 88342; J2704; J7120

== ENCOUNTER 2022-06-16 09:29 | Outpatient (CLI) | payer OTHER, SELFPAY ==
--- NOTE | ~2022-06-16 | CT_ITS ---
CT Abdomen and Pelvis with contrast. History: Colon cancer. Spiral CT of the abdomen and pelvis was performed after the administration of intravenous contrast. 1 00 cc of Omnipaque 350 was administered intravenously without complication. Dose reduction technique was used on this scan by utilizing automated exposure control and iterative reconstruction technique. The dose-length product (DLP) was 1353.58 mGy-cm. COMPARISON: 10/08/2021 Findings: Scans through the lung bases demonstrate mild atelectatic change. The liver, spleen, pancreas, gallbladder, adrenals and kidneys are within normal limits. No evidence of aortic aneurysm. No lymphadenopathy is seen. There is no evidence of bowel obstruction. Sigmoid diverticulosis noted. Large bowel anastomosis note d in the region of the splenic flexure. Images through the pelvis were performed. Urinary bladder unremarkable. No pelvic mass seen. No ascit es is seen. Impression: No evidence for active malignancy or metastatic disease. Stable large bowel anastomosis, as noted above. Reviewed, dictated and finalized at [facility]. [employer] [employer] Impression: No evidence for active malignancy or metastatic disease. Stable large bowel anastomosis, as noted above.
[2022-06-16 09:54] LABS: Estimated Glomerular Filt Rate > 60
== END 2022-06-16 09:30 | disposition home or self-care (01) ==
PROVIDERS: PCP Internal Medicine; Visit Provider Internal Medicine Hematology & Oncology
DX: C18.6 Malignant neoplasm of descending colon (principal)
CPT/HCPCS: 74177; Q9967

== ENCOUNTER 2022-06-29 00:41 | Day surgery (SDC) | payer OTHER, SELFPAY ==
[2022-06-03 09:50] VITALS: BMI 34.6
--- NOTE | 2022-06-03 10:16 | PC.NURSE ---
Report to the Outpatient Waiting Room, entrance under the green pavilion located off [address], at time __1000 on date _06/29/22 . Planned Procedure Time: 1200 . Time changes happen often and if your time is changed the preop area will call you the afternoon before. - You and your visitor will be asked to self-screen and do not enter if you have any COVID symptoms. - Only one visitor is requested with a max of two and NO children visitors are allowed at this time. - The patient visitor may be requested to leave or wait in car when not with patient due to distancing restrictions. - A mask is optional within the hospital at this time. Patients may have clear liquids (water, carbonated beverages, clear teas, apple juice) until 3 hours prior to surgery with a maximum of 20 ounces. - No food from midnight until time of surgery - Infants may have breast milk until 4 hours before surgery, formula 6 hours prior to surgery. - Children will be allowed to drink immediately following surgery. If applicable, please bring a bottle or sippy cup to assist with drinking. Juice, water, soda, and popsicles are readily available. For infants on formula, please bring formula the day of surgery. Pacifiers are allowed. Take the following medications with a SIP of water the morning of surgery: ___NONE DO NOT STOP ANY OF YOUR OTHER PRESCRIPTION MEDICATIONS PRIOR TO SURGERY ?EXCEPT THE FOLLOWING Medications to discontinue per physician PT STATES HOLD IBUPROFEN AND VIT. D3 7 DAYS PRE OP PER DR EASON. Date to take last dose____06/21/22 MAY TAKE TYLENOL IF NEEDED FOR PAIN Please no make-up, nail arabic, hairspray, perfume, deodorant, or body powder the day of surgery. No jewelry (including any body piercings) or valuables the day of surgery, leave them at home. Please take a shower or bath the night before, or the morning of, surgery with an antibacterial soap. Wear comfortable, loose fitting clothing. Children are encouraged to wear pajamas. - Jewelry must be removed prior to entering the operating room. Rings and piercings that are not removed may be cut off. - The hospital will not accept responsibility for valuables. - Please leave all valuables, including medications, at home the day of surgery. If you are going home after surgery, a licensed paratransit driver must drive you home. - NO public transportation without another adult if you receive anesthesia. - We recommend that an adult stay with you for 24 hours following discharge. - We also recommend that you do not drive, make important decision, drink alcoholic beverages, or take any drugs that were not prescribed by your health care provider for at least 24 hours after your discharge time. Follow any additional instructions given to you from your surgeon. If you or anyone in your household have experienced Covid symptoms in the past week, please notify your surgeon or the nurse liaison at the phone number below for possible testing. VERBAL AND WRITTEN instructions given to __PATIENT and asked if any additional questions and then verbalized understanding. Patient advised to call surgeon office or pre surgery nurse liaison [phone] if any additional questions.
[2022-06-03 10:34] VITALS: BP 181/90; PULSE 66; RESP 18; TEMP 36.1; O2SAT 99
[2022-06-29] VITALS (12 sets, daily range): BP systolic 104–176; BP diastolic 63–87; PULSE 56–86; RESP 14–16; TEMP 36.2–37; O2SAT 94–100; BMI 34.6
--- NOTE | ~2022-06-29 | XR_ITS ---
EXAMINATION: XR hip RT min 2V DATE: 06/29/2022 15:05 INDICATION: Right total hip arthroplasty TECHNIQUE: 2 views right hip FINDINGS: There is a right total hip arthroplasty in expected position. Subcutaneous gas with soft t issue swelling are consistent with recent surgery. IMPRESSION: 1. Recent right total hip arthroplasty. Reviewed, dictated and finalized at location B. [facility]
[2022-06-29] MEDS: ACETAMINOPHEN 500 MG TABLET 1000 MG PO (10:43)
[2022-06-29] MEDS: LACTATED RINGERS 1,000 ML 30 ML IV CONT ×2 (10:55→14:49)
--- NOTE | 2022-06-29 12:13 | WPDHPUPDATE1 ---
History and Physical Update Update Date/Time: 06/29/22 12:13 History and Physical has been reviewed, including an updated exam of the patient. There are NO changes in the patient's condition. Risks, benefits, and alternatives have been discussed and questions answered. Patient agrees to proceed with procedure.
--- NOTE | 2022-06-29 12:20 | WPDANESEPPF ---
Anes - Initial Pre Proc Eval Procedure: Operation Date: 06/29/22 12:00 Proposed Procedures p Right Total Hip Arthroplasty - Rick Leone MD Date/Time: 06/29/22 12:20 Surgeon: Rick Leone MD Pre Op Diagnosis: primary oa right hip Patient Data Age: 61 Gender: M Height: 1.83 m Weight: 108.1 kg Last Vital Signs Temp 97.2 F L 06/29/22 11:05 Pulse 82 06/29/22 11:05 Resp 16 06/29/22 11:05 BP 149/87 H 06/29/22 11:05 Pulse Ox 99 06/29/22 11:05 O2 Del Method Room Air 06/29/22 11:05 Allergies Allergy/AdvReac Type Severity Reaction Status Date / Time No Known Allergies Allergy Verified 06/29/22 10:29 Home Medications Medication Instructions Recorded Confirmed Type omeprazole 20 mg capsule,delayed 20 mg PO DAILY #90 caps 03/10/21 06/29/22 Rx release cholecalciferol (vitamin D3) 50 50 mcg PO DAILY 06/17/21 06/29/22 History mcg (2,000 unit) capsule sildenafil 100 mg tablet (Viagra) 100 mg PO DAILY PRN sexual 11/24/21 06/08/22 Rx activity #30 tabs losartan 50 mg tablet 50 mg PO DAILY #90 tabs 02/23/22 06/29/22 Rx rosuvastatin 20 mg tablet (Crestor) 20 mg PO DAILY #90 tabs 04/03/22 06/29/22 Rx ibuprofen 800 mg tablet 800 mg PO TID PRN pain #60 tabs 05/14/22 06/29/22 Rx methocarbamol 750 mg tablet 750 mg PO TID PRN muscle spasm #30 06/17/22 06/29/22 Rx tabs Laboratory Tests 06/29/22 10:47 Blood Type O Positive Antibody Screen Negative Patient hx anesthesia problems: none Family hx anesthesia problems: none Results Review: All pre-operative results and documents have been reviewed as part of the pre-operative evaluation. [facility] Past Medical History Medical History Dyslipidemia (Unknown) First degree AV block GERD (gastroesophageal reflux disease) (~05/2021) Hypertension (Unknown) Leg pain Mass of colon Numbness Painful joint Snoring Vasectomy planned Surgical History Surgical History History of colon resection Hand assisted, laparoscopic left colon resection (distal transverse and proximal half of the descending colon). 06/23/21 Family History Family History Father Cancer Multiple Myeloma Mother Cancer Lung Social History Social History Smoking packs per day: 1 Smoking cigarettes per day: 20.0 Years smoked: 15 Smoking pack-years: 15.00 Smoking status: Former smoker Tobacco type: cigarettes Second hand tobacco smoke exposure: No Smoking end date: 05/10/89 Additional smoking assessment comments: DENIES ANY FORM OF TOBACCO USE Alcohol intake: current Drinks per week: 15 Alcohol use details: BEER Substance use: never Substance use type: does not use Lack of Transportation: No Lack of Food: Never True Current Housing: I Have Housing Concerned About Future Housing: No Difficulty Paying Gas/Electric Bills: No Difficulty Paying for Meds: No Currently Unemployed: No Education: High School Diploma/GED Difficulty w/ Childcare or Family Care: No Living arrangements: with family Additional living arrangements comments: Occupation/Education: occupation 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
[2022-06-29] MEDS: ceFAZolin 2 GM/D5W 50 ML 2 GM/50 ML BAG IVPB ×2 (12:28→20:14)
[2022-06-29] MEDS: TRANEXAMIC ACID 1,000MG/ISO100 1,000 MG/100 ML BAG 200 MG IVPB (12:28)
--- NOTE | 2022-06-29 14:44 | W.PM.PROC2 ---
Procedure Note - Detailed Date of Procedure 06/29/22 Pre-op Diagnosis Primary oa right hip Post-op Diagnosis Same Procedure Performed Right Total Hip Arthroplasty Surgeon Rick Leone MD Paper Reeler Mel Helm PA-C Anesthesia General Findings Severe osteoarthritis. Large stature and bone size. Narrow type A femoral canal. Excellent bone quality. Version within normal limits. Combined version 35? at the conclusion of the procedure. Description of Procedure The patient was given preoperative antibiotics. A general anesthetic was administered. The patient was carefully placed in the lateral decubitus position on the PEG board. The shoulders and hips were carefully positioned for component and leg length positioning reference. The hip was prepped and draped in the usual sterile fashion. A longitudinal incision was created over the posterior aspect of the greater trochanter. Careful dissection was brought down through the deep fascia with electrocautery. A minimally invasive optimized posterior approach to the hip was performed. The short external rotators and capsule were taken down in an L-shaped capsulotomy. The tissue was tagged for later repair using number 2 high strength suture. The femoral neck was measured and taken in situ. The femoral head was removed. The acetabulum was carefully exposed. The inferior capsule was released. The labrum was resected. The acetabulum was sequentially reamed to the intended cup size. The cup was impacted into position with excellent press-fit. Typical anatomic landmarks, including the bony contact points as well as the inferior transverse acetabular ligament were used to confirm cup positioning with preoperative templating. Attention was turned to the femur, which was carefully exposed. The hip was reamed and then broached sequentially. Excellent press-fit was obtained with the broach. The hip was trialed. Measurements were utilized, including the lesser trochanter as well as the center of the femoral head and the tip of the trochanter, and excellent assessment of the offset and leg lengths were confirmed. The real component was impacted into position. Trialing confirmed appropriate leg length and offset with soft tissue balancing as well apparent feel of the leg, both at the knee and the heel. Soft tissues were assessed using the the iliotibial band. Reduction of the posterior capsule and external rotators were also used as a secondary assessment. The hip was copiously irrigated with pulsatile lavage antibiotic solution periodically throughout the procedure. The real components were then assembled and reduced. The hip was stable throughout typical maneuvers, including extension, external rotation to 70 degrees, the position of sleep as well as flexion to 90 degrees with internal rotation past 45 degrees. The shake test confirmed stability without impingement. Osteophytes were removed as necessary. The short external rotators and capsule were repaired back to the posterior trochanter through drill holes. The deep fascia was repaired with running number 2 Quill suture, followed by 0 Stratafix suture and 2-0 Stratafix suture in the dermis. Steri-Strips were placed on the skin, followed by a sterile silver occlusive dressing. There were no complications. Meticulous hemostasis was maintained with the AquaMantys device. The patient was brought to the recovery room in stable condition. There were no complications. Physician event sales assistant, Mel Helm PA-C, required for surgery; including patient positioning, draping, tissue retraction, maintaining instrument position, hip dislocation/ relocation, wound closure, and dressing placement. Implants The Accolade II hip stem, 132 degree size 6 , was utilized with excellent press-fit. The 56 mm Trident II acetabular component was impacted with excellent press-fit stability. 10 degree elevated liner 36 mm, alpha code F. +2.5, 36 mm Biolox ceramic fe
[2022-06-29] MEDS: fentaNYL CITRATE INJ (*CRX) 100 MCG/2 ML VIAL 25 MCG IV PUSH ×8 (15:00→15:35)
[2022-06-29] MEDS: HYDROmorphone HCL INJ (*CRX) 1 MG/ML SYR 0.5 MG IV PUSH ×2 (15:44→15:57)
[2022-06-29] MEDS: oxyCODONE HCL (*CRX) 5 MG TAB IR 10 MG PO ×2 (16:59→20:14)
[2022-06-29] MEDS: SODIUM CHLORIDE 0.9% IV 1,000 ML 125 ML IV CONT (16:59)
--- NOTE | 2022-06-29 17:07 | ADMGEN ---
This patient, Brennan Varner, was admitted to 3 [facility] Surg Room 305-01. Patient/family oriented to hospital policies and general routines including ID bracelet, bed and alarms, visiting hours, pain management, procedures, bathroom and other care routines, personal items, smoking policy, room service/diet, and visiting hours. Information on how to activate the Rapid Response Team has been discussed. Patient/Family are encouraged to report perceived risks to care and to ask questions if they do not understand what they are told or what they should do.
[2022-06-29] MEDS: ASPIRIN 81 MG ENTERIC TABLET PO (17:50)
[2022-06-29] MEDS: SENNA/DOCUSATE SODIUM TABLET 2 TAB PO (17:50)
[2022-06-29] MEDS: MELOXICAM 7.5 MG TABLET PO (17:50)
[2022-06-29] MEDS: FAMOTIDINE 20 MG TABLET PO (20:14)
[2022-06-30] MEDS: oxyCODONE HCL (*CRX) 5 MG TAB IR 10 MG PO ×2 (00:07→09:13)
[2022-06-30 00:25] VITALS: BP 127/73; PULSE 63; RESP 18; TEMP 36.3; O2SAT 96
[2022-06-30] MEDS: ceFAZolin 2 GM/D5W 50 ML 2 GM/50 ML BAG IVPB ×2 (04:12→12:15)
[2022-06-30 05:26] VITALS: BP 158/79; PULSE 68; RESP 18; TEMP 36.6; O2SAT 97
[2022-06-30 06:23] LABS: Basophils Percent Auto 0.2 % (0.2-1.2); Eosinophils Percent Auto 0.2 % (0-4.4); Hematocrit 36.9 % (42.0-52.0); Hemoglobin 12.6 g/dL (14.0-18.0); Immature Granulocyte Percent A 0.8 % (0-0.5); Lymphocytes Absolute Auto 1.13 K/mm3 (0.9-3.2); Lymphocytes Percent Auto 9.1 % (18.3-44.2); Mean Corpuscular HGB Conc 34.1 g/dl (32-36); Mean Corpuscular Hemoglobin 30.9 pg (26-34); Mean Corpuscular Volume 90.4 fl (80-100); Monocytes Absolute Auto 1.1 K/mm3 (0.1-0.6); Monocytes Percent Auto 8.5 % (2.6-8.5); Neutrophils Absolute Auto 10.1 K/mm3 (1.3-6.7); Neutrophils Percent Auto 81.2 % (45.5-73.1); Platelet Count Result 158 k/mm3 (150-375); Red Blood Count 4.08 M/mm3 (4.6-6.20); Red Cell Distribution Width 12.6 % (11.5-14.5); White Blood Count 12.4 K/mm3 (4.5-10.0)
[2022-06-30 06:39] LABS: Anion Gap 8 mmol/L (8-16); Blood Urea Nitrogen 15 mg/dL (9-20); Calcium 7.9 mg/dL (8.4-10.2); Carbon Dioxide 24 mmol/L (22-30); Chloride 99 mmol/L (98-107); Estimated CRCL calculation 109 ml/min; Estimated Glomerular Filt Rate > 60; Glucose 117 mg/dL (65-110); Potassium 3.8 mmol/L (3.4-5.0); Sodium 131 mmol/L (137-145)
[2022-06-30 08:00] VITALS: BP 175/105; PULSE 102; RESP 24; TEMP 36.8; O2SAT 98
[2022-06-30] MEDS: SENNA/DOCUSATE SODIUM TABLET 2 TAB PO (09:07)
[2022-06-30] MEDS: PANTOPRAZOLE 40 MG TABLET PO (09:08)
[2022-06-30] MEDS: LOSARTAN POTASSIUM 50 MG TABLET PO (09:08)
[2022-06-30] MEDS: MELOXICAM 7.5 MG TABLET PO (09:08)
[2022-06-30] MEDS: ASPIRIN 81 MG ENTERIC TABLET PO (09:08)
[2022-06-30] MEDS: CHOLECALCIFEROL 1,000 UNITS TABLET 2000 UNITS PO (09:08)
--- NOTE | 2022-06-30 09:13 | WPDANESPN ---
Anes - Prog Note Post-Op Date/Time: 06/30/22 09:13 Cardiovascular status: normal Respiratory status: normal Airway patency: baseline Mental status: baseline Post-Op hydration status: normal Vital Signs: Last Vital Signs Temp 98 F 06/30/22 05:26 Pulse 68 06/30/22 05:26 Resp 18 06/30/22 05:26 BP 158/79 H 06/30/22 05:26 Pulse Ox 97 06/30/22 05:26 O2 Del Method Room Air 06/30/22 08:06 O2 Flow Rate 6 06/29/22 15:00 Pain Score (VAS): 0/10 I/O: Intake & Output 06/29/22 06/30/22 06/30/22 23:59 07:59 15:59 Intake Total 840 450 Output Total 800 250 Balance 840 -350 -250 Laboratory Tests 06/30/22 05:52 06/30/22 05:52 06/29/22 06/30/22 06/30/22 10:47 05:52 05:52 WBC 12.4 H RBC 4.08 L Hgb 12.6 L Hct 36.9 L MCV 90.4 MCH 30.9 MCHC 34.1 RDW 12.6 Plt Count 158 MPV 9.0 Immature Gran % (Auto) 0.8 H Neut % (Auto) 81.2 H Lymph % (Auto) 9.1 L [place] % (Auto) 8.5 Eos % (Auto) 0.2 Baso % (Auto) 0.2 Lymph # (Auto) 1.13 [place] # (Auto) 1.1 H Eos # (Auto) 0.0 Baso # (Auto) 0.0 Abs Immat Gran (auto) 0.10 H Absolute Neuts (auto) 10.1 H Absolute Nucleated RBC 0.0 Nucleated RBC % 0.0 Sodium 131 L Potassium 3.8 Chloride 99 Carbon Dioxide 24 Anion Gap 8 BUN 15 Creatinine 0.80 Estim Creat Clear Calc 109 Estimated GFR > 60 Glucose 117 H Calcium 7.9 L Blood Type O Positive Antibody Screen Negative Post-procedural complaints: none Patient Feedback: Patient satisfied with anesthetic care.
[2022-06-30] MEDS: polyethylene glycoL 3350 17 GM POWD.PACK PO (09:16)
[2022-06-30] MEDS: ONDANSETRON INJ 4 MG/2 ML VIAL IV PUSH (09:23)
--- NOTE | 2022-06-30 10:04 | PM.DS ---
DS: Admitting Diagnosis Discharge Date 06/30/22 Admitting Diagnosis OA Right hip DS: Discharge Diagnosis Discharge Diagnosis (1) Status post total hip replacement, right: Code(s): Z96.641 - Presence of right artificial hip joint Status: Acute Assessment and Plan: Postop day 1: Total hip arthroplasty. Patient tolerated procedure well. No complications. Pain manageable with pain medication. No numbness or tingling. We had a lengthy discussion regarding postoperative wound care, limitations, expectations, and exercises. Patient shows good understanding. Patient has had initial physical therapy and is tolerating it well. He has some sciatic pain and would like to start formal physical therapy sooner. That is reasonable. Will also send prednisone for sciatic pain. DVT prophylaxis: 81 mg baby aspirin b.i.d. for 14 days. Short frequent walks. Pain medication: Percocet. Meloxicam. Prednisone. Patient has followup appointment with Dr. Leone in 3 weeks DS: Summary Hospital Course Reason for hospitalization: Total hip arthroplasty Hospital Course: Patient tolerated procedure well. Has had initial PT/OT and made good progress. Status at Discharge Functional status at discharge: uses cane/walker Overall status at discharge: patient is progressing back to baseline Time Spent with Patient Time attestation: Total time spent providing and/or coordinating discharge services: Exam Narrative: Overweight 61 y/o male. Resting comfortably in bed. Wearing compression socks bilaterally. Dressing dry and intact with no drainage. Moderate swelling. No ecchymosis. No erythema. No hematoma. Range of motion limited due to pain. Calf nontender. Thigh nontender. Neurologic status intact. No varicosities. Distal pulses palpable. DS: Data Data Completed and Pending Labs on day of discharge: Labs from last 24 hours 06/30/22 06/30/22 06/29/22 05:52 05:52 10:47 WBC 12.4 H RBC 4.08 L Hgb 12.6 L Hct 36.9 L MCV 90.4 MCH 30.9 MCHC 34.1 RDW 12.6 Plt Count 158 MPV 9.0 Immature Gran % (Auto) 0.8 H Neut % (Auto) 81.2 H Lymph % (Auto) 9.1 L [place] % (Auto) 8.5 Eos % (Auto) 0.2 Baso % (Auto) 0.2 Lymph # (Auto) 1.13 [place] # (Auto) 1.1 H Eos # (Auto) 0.0 Baso # (Auto) 0.0 Abs Immat Gran (auto) 0.10 H Absolute Neuts (auto) 10.1 H Absolute Nucleated RBC 0.0 Nucleated RBC % 0.0 Sodium 131 L Potassium 3.8 Chloride 99 Carbon Dioxide 24 Anion Gap 8 BUN 15 Creatinine 0.80 Estim Creat Clear Calc 109 Estimated GFR > 60 Glucose 117 H Calcium 7.9 L Blood Type O Positive Antibody Screen Negative Discharge Plan Discharge Patient Disposition: Home, Self-Care Discharge Instructions: See green instructions Stand Alone Forms: General Discharge Instructions Follow-up/Referrals: Mel Helm PA [Physician Interactive Marketing Strategist] - Discharge Medications: New aspirin 81 mg tablet,delayed release (DR/EC) 81 mg PO BID 14 Days Qty: 28 0RF oxycodone-acetaminophen 5-325 mg tablet 1 - 2 tablet PO Q4-6H MDD 6 PRN (Reason: pain) Qty: 30 0RF prednisone 5 mg tablet 5 mg PO DAILY 21 Days Qty: 21 0RF Continued omeprazole 20 mg capsule,delayed release(DR/EC) 20 mg PO DAILY Qty: 90 1RF Hold Instructions: Hold this for 1 week then resume and take it twice a day instead of once a day for another week. If yourr GERD is well controlled then you can cut back to usual dose after that. cholecalciferol (vitamin D3) 50 mcg (2,000 unit) Capsule 50 mcg PO DAILY sildenafil [Viagra] 100 mg tablet 100 mg PO DAILY PRN (Reason: sexual activity) Qty: 30 0RF Rx Instructions: administer 30 minutes to 4 hours before activity losartan 50 mg tablet 50 mg PO DAILY Qty: 90 1RF rosuvastatin [Crestor] 20 mg tablet 20 mg PO DAILY Qty: 90 1RF ibuprofen 800 mg tablet
[2022-06-30] MEDS: ROSUVASTATIN 10 MG TABLET 20 MG PO (12:26)
[2022-06-30 14:00] VITALS: BP 128/62; PULSE 76; RESP 23; TEMP 36.6; O2SAT 98
== END 2022-06-30 16:35 | disposition home or self-care (01) ==
LOC: ANHSURGERY 12:32 → ANH3MEDSUR 16:23
PROVIDERS: Physician Assistant Surgical; PCP Internal Medicine; Visit Provider Orthopaedic Surgery
PROC: (CPT 27130; principal; 2022-06-29 12:00)
DX: M16.11 Unilateral primary osteoarthritis, right hip (principal); I10 Essential (primary) hypertension; E78.5 Hyperlipidemia, unspecified; K21.9 Gastro-esophageal reflux disease without esophagitis; I44.0 Atrioventricular block, first degree; Z87.891 Personal history of nicotine dependence; E66.9 Obesity, unspecified; Z68.34 Body mass index [BMI] 34.0-34.9, adult
CPT/HCPCS: 27130; 36415; 73502; 80048; 85025; 86850; 86900; 86901; 97110; 97161; 97165; 97530; 97535; A9270; C1776; J0131; J0171; J0690; J1100; J1170; J1885; J2250; J2270; J2405; J2704; J2710; J2795; J3010; J7030; J7120

== ENCOUNTER 2022-08-17 07:56 | Outpatient (CLI) | payer OTHER, SELFPAY ==
[2022-08-17 09:18] LABS: Hematocrit 42.1 % (42.0-52.0); Hemoglobin 14.2 g/dL (14.0-18.0)
[2022-08-17 09:58] LABS: Carcinoembryonic Antigen 0.9 ng/mL (0.0-3.0)
== END 2022-08-17 07:57 | disposition home or self-care (01) ==
LOC: ANHSURGERY 07:59
PROVIDERS: Anesthesiology; PCP Internal Medicine; Visit Provider Surgery
DX: D12.6 Benign neoplasm of colon, unspecified (principal); Z01.818 Encounter for other preprocedural examination
CPT/HCPCS: 36415; 82378; 85014; 85018

== ENCOUNTER 2022-09-01 14:33 | Inpatient (IN) | payer OTHER, SELFPAY ==
--- NOTE | 2022-08-17 07:44 | PC.NURSE ---
PRE-OP INSTRUCTIONS, PLEASE READ CAREFULLY Report to the Outpatient Waiting Room, entrance under the green pavilion located off [facility], at time _0930_ on date _09/01/22_. Planned Procedure Time: _1130_. PACK A SMALL OVERNIGHT BAG AND LEAVE IN THE CAR Time changes happen often and if your time is changed the preop area will call you the afternoon before. - You and your visitor will be asked to self-screen and do not enter if you have any COVID symptoms. - A mask is optional within the hospital at this time. -VISITING HOURS 8AM-8PM Patients may have clear liquids (water, carbonated beverages, clear teas, apple juice) until 3 hours prior to surgery (0830 AM) with a maximum of 20 ounces. - No food from midnight until time of surgery Take the following medications with a SIP of water the morning of surgery: _PAIN PILL IF NEEDED_ DO NOT STOP ANY OF YOUR OTHER PRESCRIPTION MEDICATIONS PRIOR TO SURGERY ?EXCEPT THE FOLLOWING Medications to discontinue _IBUPROFEN PER DR. PRATER'S INSTRUCTIONS_, Date to take last dose Please no make-up, nail turkmen, hairspray, perfume, deodorant, or body powder the day of surgery. No jewelry (including any body piercings) or valuables the day of surgery, leave them at home. Please take a shower or bath the night before, or the morning of, surgery with an antibacterial soap. Wear comfortable, loose fitting clothing. - Jewelry must be removed prior to entering the operating room. Rings and piercings that are not removed may be cut off. - The hospital will not accept responsibility for valuables. - Please leave all valuables, including medications, at home the day of surgery. If you are going home after surgery, a licensed driver engineer must drive you home. - NO public transportation without another adult if you receive anesthesia. - We recommend that an adult stay with you for 24 hours following discharge. - We also recommend that you do not drive, make important decision, drink alcoholic beverages, or take any drugs that were not prescribed by your health care provider for at least 24 hours after your discharge time. Follow any additional instructions given to you from DR. PRATER. DIET, PRE-OP ANTIBIOTICS, BOWEL PREP, *HIBICLENS SHOWER DAY BEFORE AND AM OF SURGERY If you or anyone in your household have experienced Covid symptoms in the past week, please notify your surgeon or the nurse liaison at the phone number below for possible testing. Instructions given to _PATIENT_and asked if any additional questions and then verbalized understanding. Patient advised to call surgeon office or pre surgery nurse liaison [phone] if any additional questions.
[2022-08-17 08:18] VITALS: BP 166/90; PULSE 80; RESP 20; TEMP 37.2; O2SAT 98; BMI 32.9
--- NOTE | 2022-08-31 13:14 | WPDANESEPPF ---
Anes - Initial Pre Proc Eval Procedure: Operation Date: 09/01/22 09:30 Proposed Procedures p Robotic Assisted Laparoscopic Left Hemicolectomy - Jb Hernandez DO Date/Time: 08/31/22 13:14 Surgeon: Jb Hernandez DO Pre Op Diagnosis: high grade dysplasia, colonic adenoma Patient Data Age: 61 Gender: M Height: 1.83 m Weight: 110.2 kg Last Vital Signs Temp 37.2 C 08/17/22 08:18 Pulse 80 08/17/22 08:18 Resp 20 08/17/22 08:18 BP 166/90 H 08/17/22 08:18 Pulse Ox 98 08/17/22 08:18 O2 Del Method Room Air 08/17/22 08:18 Allergies Allergy/AdvReac Type Severity Reaction Status Date / Time No Known Allergies Allergy Verified 08/19/22 09:30 Home Medications Medication Instructions Recorded Confirmed Type omeprazole 20 mg capsule,delayed 20 mg PO DAILY #90 caps 03/10/21 08/19/22 Rx release cholecalciferol (vitamin D3) 50 50 mcg PO DAILY 06/17/21 08/19/22 History mcg (2,000 unit) capsule sildenafil 100 mg tablet (Viagra) 100 mg PO DAILY PRN sexual 11/24/21 08/19/22 Rx activity #30 tabs rosuvastatin 20 mg tablet (Crestor) 20 mg PO DAILY #90 tabs 07/02/22 08/19/22 Rx oxycodone-acetaminophen 5 mg-325 1 - 2 tablet PO Q4-6H PRN pain #30 07/20/22 08/19/22 Rx mg tablet tabs ibuprofen 800 mg tablet 800 mg PO TID PRN pain #60 tabs 08/03/22 08/19/22 Rx ciprofloxacin HCl 500 mg tablet 500 mg PO .COMPLEX #1 tablet 08/17/22 08/19/22 Rx metronidazole 500 mg tablet 500 mg PO .COMPLEX #3 tabs 08/17/22 08/19/22 Rx losartan 50 mg tablet 50 mg PO DAILY #90 tabs 08/24/22 Rx Patient hx anesthesia problems: post op nausea/vomiting Family hx anesthesia problems: none Results Review: All pre-operative results and documents have been reviewed as part of the pre-operative evaluation. [facility] Past Medical History Medical History Dyslipidemia (Unknown) First degree AV block GERD (gastroesophageal reflux disease) (~05/2021) Hypertension (Unknown) Leg pain Mass of colon Numbness Painful joint Snoring Vasectomy planned Surgical History Surgical History History of colon resection Hand assisted, laparoscopic left colon resection (distal transverse and proximal half of the descending colon). 06/23/21 History of total right hip replacement (~06/29/22) Family History Family History Father Cancer Multiple Myeloma Mother Cancer Lung Social History Social History Smoking packs per day: 1 Smoking cigarettes per day: 20.0 Years smoked: 15 Smoking pack-years: 15.00 Smoking status: Former smoker Tobacco type: cigarettes Second hand tobacco smoke exposure: No Smoking end date: 05/10/97 Alcohol intake: current Drinks per week: 10 Alcohol use details: BEER Substance use: never Substance use type: does not use Lack of Transportation: No Lack of Food: Never True Current Housing: I Have Housing Concerned About Future Housing: No Difficulty Paying Gas/Electric Bills: No Difficulty Paying for Meds: No Currently Unemployed: No Education: High School Diploma/GED Difficulty w/ Childcare or Family Care: No Living arrangements: with family Additional living arrangements comments: Occupation/Education: occupation 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
[2022-09-01] VITALS (13 sets, daily range): BP systolic 112–153; BP diastolic 67–90; PULSE 64–97; RESP 13–20; TEMP 36.2–36.8; O2SAT 95–100
[2022-09-01] MEDS: LACTATED RINGERS 1,000 ML 30 ML IV CONT ×2 (08:00→13:22)
--- NOTE | 2022-09-01 08:57 | PM.IMHP ---
H&P: HPI History of Present Illness Date/Time: 09/01/22 08:57 Chief Complaint: Colon polyp Narrative: This is a 61-year-old man who presents for left hemicolectomy. He has a recent history of left colon cancer and recently underwent hand assisted laparoscopic left hemicolectomy. He then underwent colonoscopy 1 year out from that surgery and a recurrent polyp with dysplasia was identified at the anastomosis. He now presents for resection of that region. Review of Systems Review of Systems: All systems reviewed & are unremarkable except as noted in HPI and below Constitutional: Constitutional: Denies chills, Denies fever(s), Denies headache(s) and Denies weight loss Eyes: Eyes: Denies change in vision ENT: Denies dizziness, Denies headache(s), Denies neck mass and Denies throat swelling Cardiovascular: Cardiovascular: Denies chest pain, Denies lightheadedness and Denies dyspnea Respiratory: Respiratory: Denies cough, Denies dyspnea and Denies wheezing Gastrointestinal: Gastrointestinal: Denies abdominal pain, Denies change in bowel habits, Denies nausea and Denies vomiting Genitourinary: Genitourinary: Denies hematuria and Denies dysuria Musculoskeletal: Musculoskeletal: Reports as per HPI Integumentary/Breasts: Skin/Breast: Reports as per HPI Neurologic: Denies dizziness and Denies headache(s) Allergic/Immunologic: Allergic/Immunologic: Denies throat swelling and Denies wheezing [facility] Past Medical History Medical History Dyslipidemia (Unknown) First degree AV block GERD (gastroesophageal reflux disease) (~05/2021) Hypertension (Unknown) Leg pain Mass of colon Numbness Painful joint Snoring Vasectomy planned Surgical History Surgical History History of colon resection Hand assisted, laparoscopic left colon resection (distal transverse and proximal half of the descending colon). 06/23/21 History of total right hip replacement (~06/29/22) Family History Family History Father Cancer Multiple Myeloma Mother Cancer Lung Social History Social History Smoking packs per day: 1 Smoking cigarettes per day: 20.0 Years smoked: 15 Smoking pack-years: 15.00 Smoking status: Former smoker Tobacco type: cigarettes Second hand tobacco smoke exposure: No Smoking end date: 05/10/97 Alcohol intake: current Drinks per week: 10 Alcohol use details: BEER Substance use: never Substance use type: does not use Lack of Transportation: No Lack of Food: Never True Current Housing: I Have Housing Concerned About Future Housing: No Difficulty Paying Gas/Electric Bills: No Difficulty Paying for Meds: No Currently Unemployed: No Education: High School Diploma/GED Difficulty w/ Childcare or Family Care: No Living arrangements: with family Additional living arrangements comments: Occupation/Education: occupation 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 [employer] Gender identity (if verbalized by the patient): Male Spiritual care concerns: No Meds Home Medications and Allergies Home Medications Medication Instructions Recorded Confirmed Type omeprazole 20 mg capsule,delayed 20 mg PO DAILY #90 caps 03/10/21 08/19/22 Rx release cholecalciferol (vitamin D3) 50 50 mcg PO DAILY 06/17/21 08/19/22 History mcg (2,000 unit) capsule sildenafil 100 mg tablet (Viagra) 100 mg PO DAILY PRN sexual 11/24/21 08/19/22 Rx activity #30 tabs rosuvastatin 20 mg tablet (Crestor) 20 mg PO DAILY #90 tabs 07/02/22 08/19/22 Rx oxycodone-acetaminophen 5 mg-325 1 - 2 tablet PO Q4-6H PRN pain #30 07/20/22 08/19/22 Rx mg tablet tabs ibuprofen 800 mg tablet 800 mg PO TID PRN pain #60 tabs 08/03/22 08/19/22 Rx ciprofloxacin HCl
[2022-09-01] MEDS: KETOROLAC 15 MG/ML VIAL (*BKC) IV PUSH (09:00)
[2022-09-01] MEDS: ACETAMINOPHEN 500 MG TABLET 1000 MG PO ×2 (09:00→17:34)
[2022-09-01] MEDS: SCOPOLAMINE 1.5 MG PATCH TRANSDERM (09:00)
--- NOTE | 2022-09-01 09:00 | WPDHPUPDATE1 ---
History and Physical Update Update Date/Time: 09/01/22 09:00 History and Physical has been reviewed, including an updated exam of the patient. There are NO changes in the patient's condition. Risks, benefits, and alternatives have been discussed and questions answered. Patient agrees to proceed with procedure.
[2022-09-01] MEDS: ceFAZolin 2 GM/D5W 50 ML 2 GM/50 ML BAG IVPB (09:34)
[2022-09-01] MEDS: metroNIDAZOLE 500 MG/ISO 100ML 500 MG/100 ML BAG 100 MG IVPB (09:51)
[2022-09-01] MEDS: BUPIVACAINE/EPINEPHRINE 0.5% 50 ML VIAL 30 ML INFILTRATE (10:44)
[2022-09-01] MEDS: INDOCYANINE GREEN 25 MG VIAL WITH DILUENT 3.75 MG IV PUSH (12:10)
--- NOTE | 2022-09-01 13:15 | W.PM.PROC2 ---
Procedure Note - Detailed Date of Procedure 09/01/22 Pre-op Diagnosis high grade dysplasia, colonic adenoma Post-op Diagnosis Same Procedure Performed Laparoscopic left hemicolectomy with anastomosis, da Maryuri assisted Surgeon Jb Hernandez DO Anesthesia General and Local (0.5% bupivacaine with epinephrine) Indications This is a 61-year-old man who presented with an adenoma with dysplasia at his previous anastomosis on colonoscopy that was done on 06/08/2002. Patient had a prior history of adenocarcinoma of the colon and underwent hand assisted laparoscopic left hemicolectomy by Dr. Astorga on 06/23/2021. Pathology showed negative margins and 0/18 lymph nodes positive. He was doing well postoperatively and underwent colonoscopy at 1 year out. Due to the finding of adenoma with dysplasia at the anastomosis, decision was made to proceed with robotic assisted laparoscopic left hemicolectomy. Findings Robotic assisted laparoscopic left hemicolectomy was performed. Patient had some adhesions to the midline from his prior surgery, but no other significant intra-abdominal abnormalities were noted. The anastomosis was identified up in the left upper quadrant and the splenic flexure had already been mobilized previously. I performed a lateral to medial dissection of the descending colon down to the sigmoid and also dissected the transverse colon far enough to the right to allow for mobilization. I resected the anastomosis for about 5 cm proximal and distal and performed a resection at each of these locations. The transverse colon then came down to the descending colon without too much tension and I was able to perform a [id number] stapled anastomosis. The segment of the previous anastomosis was removed and sent to the lab for pathology with the distal end marked with a suture. Description of Procedure Procedure as well as risks, benefits, and alternatives were discussed with the patient. Written consent was obtained and placed in chart prior to procedure. Patient was brought back to surgical suite. He was placed supine on operating table. Time-out was done to confirm patient and procedure. He was then intubated by the anesthesia department. His abdomen was prepped and draped in sterile fashion using chlorhexidine prep. 0.5% bupivacaine with epinephrine was infiltrated at each of the locations for port placement. An 8 mm incision was made in the right upper quadrant and a 5 mm Optiview trocar was advanced through the abdominal layers under direct visualization. Once inside the abdominal cavity, carbon dioxide insufflation was used to create a pneumoperitoneum. A camera was inserted in the abdomen was inspected. A 12 mm incision was made in the suprapubic region in midline and a 12 mm trocar was inserted under direct visualization. An 8 mm incision was made just to the right of the umbilicus and an 8 mm trocar was inserted under direct visualization. One more 8 mm incision and trocar was placed in between the right upper quadrant incision and the periumbilical incision. An 8 mm assist port incision was placed in the right lateral abdomen. A 5 mm port was then removed and this was exchanged for an 8 mm robotic port. There were a few omental adhesions up to the midline periumbilical region from his prior surgery which were taken down using laparoscopic scissors. This then allowed me to see inside the abdominal cavity. No other significant abnormalities were noted. The omentum was then reflected cephalad over the transverse colon. The patient was then placed in 15? tilt to the right and in slight reverse Trendelenburg. The robotic arms were then secured to the ports and then the robotic camera and instruments were inserted. I then moved over to the robotic console and took control of the camera and instruments. A thorough inspection around the abdominal cavity was performed. I inspected the left upper quadrant and identified the area of the previous c
[2022-09-01] MEDS: fentaNYL CITRATE INJ (*CRX) 100 MCG/2 ML VIAL 25 MCG IV PUSH ×2 (13:52→13:55)
--- NOTE | 2022-09-01 15:09 | ADMGEN ---
This patient, Brennan Varner, was admitted to 2 Medical Room 243-01. Patient/family oriented to hospital policies and general routines including ID bracelet, bed and alarms, visiting hours, pain management, procedures, bathroom and other care routines, personal items, smoking policy, room service/diet, and visiting hours. Information on how to activate the Rapid Response Team has been discussed. Patient/Family are encouraged to report perceived risks to care and to ask questions if they do not understand what they are told or what they should do.
[2022-09-01] MEDS: ceFAZolin 1 GM/NS 50 ML 1 GM/50 ML BAG IVPB (16:09)
[2022-09-01] MEDS: LACTATED RINGERS 1,000 ML 100 ML IV CONT (16:09)
[2022-09-01] MEDS: oxyCODONE HCL (*CRX) 5 MG TAB IR PO ×2 (16:20→21:23)
[2022-09-01] MEDS: oxyCODONE HCL (*CRX) 5 MG TAB IR 10 MG PO (22:48)
[2022-09-02] MEDS: ceFAZolin 1 GM/NS 50 ML 1 GM/50 ML BAG IVPB (01:09)
[2022-09-02] MEDS: ACETAMINOPHEN 500 MG TABLET 1000 MG PO ×4 (01:09→18:43)
[2022-09-02 02:02] VITALS: BP 132/71; PULSE 80; RESP 18; TEMP 36.9; O2SAT 96
[2022-09-02] MEDS: LACTATED RINGERS 1,000 ML 100 ML IV CONT ×2 (02:26→14:00)
[2022-09-02 05:38] LABS: Basophils Percent Auto 0.2 % (0.2-1.2); Hematocrit 32.6 % (42.0-52.0); Immature Granulocyte Absolute 0.06 K/mm3 (0.00-0.031); Immature Granulocyte Percent A 0.6 % (0-0.5); Lymphocytes Absolute Auto 0.98 K/mm3 (0.9-3.2); Lymphocytes Percent Auto 9.1 % (18.3-44.2); Mean Corpuscular HGB Conc 33.7 g/dl (32-36); Mean Corpuscular Hemoglobin 31.3 pg (26-34); Mean Corpuscular Volume 92.9 fl (80-100); Mean Platelet Volume 9.4 fl (7.4-10.4); Monocytes Absolute Auto 1.2 K/mm3 (0.1-0.6); Monocytes Percent Auto 11.4 % (2.6-8.5); Neutrophils Absolute Auto 8.5 K/mm3 (1.3-6.7); Neutrophils Percent Auto 78.7 % (45.5-73.1); Platelet Count Result 154 k/mm3 (150-375); Red Blood Count 3.51 M/mm3 (4.6-6.20); Red Cell Distribution Width 13.9 % (11.5-14.5); White Blood Count 10.8 K/mm3 (4.5-10.0)
[2022-09-02 05:43] LABS: Anion Gap 5 mmol/L (8-16); Blood Urea Nitrogen 15 mg/dL (9-20); Calcium 8.5 mg/dL (8.4-10.2); Carbon Dioxide 26 mmol/L (22-30); Chloride 101 mmol/L (98-107); Estimated CRCL calculation 105 ml/min; Estimated Glomerular Filt Rate > 60; Glucose 119 mg/dL (65-110); Potassium 3.7 mmol/L (3.4-5.0); Sodium 132 mmol/L (137-145)
[2022-09-02] MEDS: ONDANSETRON INJ 4 MG/2 ML VIAL IV PUSH (07:45)
[2022-09-02] MEDS: PANTOPRAZOLE 40 MG TABLET PO (07:49)
[2022-09-02] MEDS: ENOXAPARIN 40 MG/0.4 ML SYRINGE SUB-Q (07:49)
[2022-09-02] MEDS: oxyCODONE HCL (*CRX) 5 MG TAB IR 10 MG PO (08:44)
[2022-09-02 10:27] VITALS: BP 115/71; PULSE 89; RESP 16; TEMP 36.3; O2SAT 97
--- NOTE | 2022-09-02 11:17 | PM.PNGS ---
Progress Note: A&P Assessment and Plan (1) High grade dysplasia in colonic adenoma: Code(s): D12.6 - Benign neoplasm of colon, unspecified Status: Acute Assessment and Plan: Patient with an episode of vomiting this morning. Treated with antiemetics and feeling better. He is showing signs of bowel function returning. Will keep on clear liquids today and monitor Encouraged increasing activity and ambulating in the halls today Repeat labs tomorrow Pathology pending Plan I have discussed the patient's case and plan of care with Dr. Hernandez. Subjective Subjective Date/Time Seen: 09/02/22 11:17 Post Op day: 1 (Laparoscopic left hemicolectomy with anastomosis, da Maryuri assisted) Patient reports: flatus, bowel movement, vomiting and afebrile Interval history: Chart reviewed. Patient reports having an episode of vomiting shortly after having clear liquids this morning at breakfast. He said it came on quickly and he had not had any nausea through the night or prior to eating. Denies feeling bloated. He received Zofran and is feeling much better. He has been up and walking in the room. He denies any abdominal pain. He has taken oxycodone, but this has been for his chronic hip pain. He reports flatus and had to bowel movements this morning prior to his episode of vomiting. Review of Systems Review of Systems: All systems reviewed & are unremarkable except as noted in HPI and below Exam Const: General: no acute distress Orientation/consciousness: patient oriented x3 GI: Inspection: incision (incisions dry and intact) and other (mildly distended) GI Palp: Yes Soft to palpation, No Tenderness to palpation present (GI), No Guarding due to palpation present (GI) and No Rebound tenderness present Auscultation: High-pitched bowel sounds present Urinary Catheter: Urinary Catheter: patent and draining and urine clear Neuro: General: moves all extremities and no focal motor deficits Extrem: General: no calf tenderness and no edema Psych: Mental Status: mental status grossly normal Insight: Good insight present (Psych) Objective Data Vital Signs Vital Signs: Vital Signs - 24 hr 09/01/22 13:25 09/01/22 13:40 09/01/22 13:55 Temperature 97.6 F Pulse Rate 90 76 66 Respiratory Rate 20 18 14 Blood Pressure 130/88 130/75 113/87 Pulse Oximetry 98 100 95 Oxygen Delivery Simple Face Mask Simple Face Mask Room Air Oxygen Flow Rate 8 8 09/01/22 14:10 09/01/22 14:25 09/01/22 15:00 Temperature 97.7 F Pulse Rate 69 64 69 Respiratory Rate 13 18 16 Blood Pressure 143/78 H 145/82 H 150/86 H Pulse Oximetry 97 97 96 Oxygen Delivery Room Air Room Air Oxygen Flow Rate 09/01/22 15:15 09/01/22 15:45 09/01/22 16:45 Temperature 97.6 F 97.6 F 97.2 F L Pulse Rate 72 67 68 Respiratory Rate 16 16 14 Blood Pressure 150/88 H 150/78 H 153/81 H Pulse Oximetry 95 95 96 Oxygen Delivery Oxygen Flow Rate 09/01/22 18:05 09/01/22 20:45 09/01/22 23:57 Temperature 97.6 F 97.5 F L 98.2 F Pulse Rate 97 75 76 Respiratory Rate 16 18 18 Blood Pressure 126/67 112/70 130/84 Pulse Oximetry 95 97 97 Oxygen Delivery Oxygen Flow Rate 09/02/22 02:02 09/02/22 10:27 Temperature 98.5 F 97.4 F L Pulse Rate 80 89 Respiratory Rate 18 16 Blood Pressure 132/71 115/71 Pulse Oximetry 96 97 Oxygen Delivery Oxygen Flow Rate Intake/Output Intake/Output: Intake & Output 08/30/22 08/31/22 09/01/22 09/02/22 23:59 23:59 23:59 23:59 Intake Total 2690 1630 Output Total 235 600 Balance 2455 1030 Meds/Results Medications: Active Medications Generic Name Dose Route Start Last Admin Trade Name [place] PRN Reason Stop Dose Admin Acetaminophen 1,000 mg 09/01/22 18:00 09/02/22 06:26 Acetaminophen 500 Mg Tablet PO 1,000 mg Q6HR [facility] Administration Enoxaparin Sodium 40 mg 09/02/22 09:00 09/02/22 07:49 Enoxaparin 40 Mg/0.4 Ml Syringe SUB-Q 40 mg DAILY [facility] Administrat
--- NOTE | 2022-09-02 13:37 | WPDANESPN ---
Anes - Prog Note Post-Op Date/Time: 09/02/22 13:37 Cardiovascular status: normal Respiratory status: normal Airway patency: baseline Mental status: baseline Post-Op hydration status: normal Vital Signs: Last Vital Signs Temp 36.3 C L 09/02/22 10:27 Pulse 89 09/02/22 10:27 Resp 16 09/02/22 10:27 BP 115/71 09/02/22 10:27 Pulse Ox 97 09/02/22 10:27 O2 Del Method Room Air 09/02/22 08:00 O2 Flow Rate 8 09/01/22 13:40 Pain Score (VAS): 07/17 I/O: Intake & Output 09/01/22 09/02/22 09/02/22 23:59 07:59 15:59 Intake Total 1040 1050 580 Output Total 175 600 Balance 865 450 580 Laboratory Tests 09/02/22 05:00 09/02/22 05:00 09/02/22 05:00 WBC 10.8 H RBC 3.51 L Hgb 11.0 L D Hct 32.6 L MCV 92.9 MCH 31.3 MCHC 33.7 RDW 13.9 Plt Count 154 MPV 9.4 Immature Gran % (Auto) 0.6 H Neut % (Auto) 78.7 H Lymph % (Auto) 9.1 L [place] % (Auto) 11.4 H Eos % (Auto) 0.0 Baso % (Auto) 0.2 Lymph # (Auto) 0.98 [place] # (Auto) 1.2 H Eos # (Auto) 0.0 Baso # (Auto) 0.0 Abs Immat Gran (auto) 0.06 H Absolute Neuts (auto) 8.5 H Absolute Nucleated RBC 0.0 Nucleated RBC % 0.0 Sodium 132 L Potassium 3.7 Chloride 101 Carbon Dioxide 26 Anion Gap 5 L BUN 15 Creatinine 0.80 Estim Creat Clear Calc 105 Estimated GFR > 60 Glucose 119 H Calcium 8.5 Post-procedural complaints: none Patient Feedback: Patient satisfied with anesthetic care.
--- NOTE | 2022-09-02 16:06 | PC.NURSE ---
Pt began having intermittent confusion early this afternoon. Stating several times this thing needs unhooked and hooked back up when asking what he is referring to he points to his frank catheter. Upon standing to go to the restroom, pt fidgets with IV line and is having a hard time realizing the IV is attached to him. When informed he can just walk with the IV pole, he verbalizes understanding but continues to fidget and appear as if he doesn't understand. 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 BAR MACHINE OPERATOR [employer] SP[employer]LE asked where he was going and pt stated to the bathroom . Pt was not confused upon shift change this morning. One dose of Oxycodone was given at 0844. Neurocheck completed by RN which was normal. General surgery notified of changes. ARABELLA Salguero and Dr. Miller came to see pt.
[2022-09-02 17:14] VITALS: BP 118/72; PULSE 71; RESP 16; TEMP 36.3; O2SAT 95
[2022-09-02 18:00] LABS: Hematocrit 30.2 % (42.0-52.0); Hemoglobin 10.3 g/dL (14.0-18.0)
[2022-09-02 21:51] VITALS: BP 126/74; PULSE 72; RESP 17; TEMP 37; O2SAT 97
[2022-09-02 23:46] VITALS: BP 148/71; PULSE 83; RESP 18; TEMP 36.8; O2SAT 96
[2022-09-03] MEDS: ACETAMINOPHEN 500 MG TABLET 1000 MG PO ×3 (01:04→12:00)
[2022-09-03 03:54] VITALS: BP 144/81; PULSE 76; RESP 18; TEMP 37.1; O2SAT 97
[2022-09-03 05:25] LABS: Hematocrit 29.5 % (42.0-52.0); Hemoglobin 9.9 g/dL (14.0-18.0); Immature Platelet Fraction Pct 2.4 % (0.9-11.2); Mean Corpuscular HGB Conc 33.6 g/dl (32-36); Mean Corpuscular Hemoglobin 31.3 pg (26-34); Mean Corpuscular Volume 93.4 fl (80-100); Mean Platelet Volume 9.4 fl (7.4-10.4); Platelet Count Result 137 k/mm3 (150-375); Red Blood Count 3.16 M/mm3 (4.6-6.20); Red Cell Distribution Width 13.7 % (11.5-14.5); White Blood Count 6.9 K/mm3 (4.5-10.0)
[2022-09-03 05:33] LABS: Anion Gap 5 mmol/L (8-16); Blood Urea Nitrogen 10 mg/dL (9-20); Calcium 8.4 mg/dL (8.4-10.2); Carbon Dioxide 27 mmol/L (22-30); Chloride 104 mmol/L (98-107); Estimated CRCL calculation 119 ml/min; Estimated Glomerular Filt Rate > 60; Glucose 107 mg/dL (65-110); Potassium 3.4 mmol/L (3.4-5.0); Sodium 136 mmol/L (137-145)
[2022-09-03] MEDS: oxyCODONE HCL (*CRX) 5 MG TAB IR 10 MG PO (06:21)
[2022-09-03] MEDS: PANTOPRAZOLE 40 MG TABLET PO (08:51)
[2022-09-03] MEDS: LOSARTAN POTASSIUM 50 MG TABLET PO (08:51)
[2022-09-03] MEDS: ROSUVASTATIN 10 MG TABLET 20 MG PO (08:51)
[2022-09-03 09:00] VITALS: BP 184/56; PULSE 75
--- NOTE | 2022-09-03 11:02 | PC.NURSE ---
On 09/03/22, the student, [Yohana Campos], provided care and completed [facility] documentation on this patient. I have reviewed the student's documentation and agree with the findings.
[2022-09-03 11:27] VITALS: BP 114/76
--- NOTE | 2022-09-03 11:36 | PM.PNGS ---
Progress Note: A&P Assessment and Plan (1) High grade dysplasia in colonic adenoma: Code(s): D12.6 - Benign neoplasm of colon, unspecified Status: Acute Assessment and Plan: Tolerating full liquids. Will advance to low fiber diet. Encouraged increasing activity. Could potentially discharge later this evening or possibly tomorrow if tolerating his diet. Plan I have discussed the patient's case and plan of care with Dr. Hernandez. Subjective Subjective Date/Time Seen: 09/03/22 11:36 Post Op day: 2 (Laparoscopic left hemicolectomy with anastomosis, da Maryuri assisted) Patient reports: feels better, tolerating liquids well, voiding w/o difficulty, flatus, bowel movement and nausea Interval history: Patient doing well today. He is feeling better. He had some lower abdominal pain yesterday afternoon, which has improved some today. Nj was removed yesterday and he is voiding without any issues. He does endorse some very mild nausea that he attributes to the medication he is taking. Has not required Zofran and no further episodes of vomiting. He has had multiple BMs last night and this morning. Reports bowels are getting darker and more brown, no bloody stools today. Review of Systems Review of Systems: All systems reviewed & are unremarkable except as noted in HPI and below Exam Const: General: comfortable, no acute distress and awake Orientation/consciousness: patient oriented x3 GI: Inspection: non-distended and incision (incisions dry and intact) GI Palp: Yes Soft to palpation, No Tenderness to palpation present (GI) and No Guarding due to palpation present (GI) Auscultation: normal bowel sounds Neuro: General: moves all extremities and no focal motor deficits Extrem: General: no calf tenderness and no edema Psych: Mental Status: mental status grossly normal Insight: Good insight present (Psych) Objective Data Vital Signs Vital Signs: Vital Signs - 24 hr 09/02/22 17:14 09/02/22 21:51 09/02/22 23:46 Temperature 97.4 F L 98.6 F 98.2 F Pulse Rate 71 72 83 Respiratory Rate 16 17 18 Blood Pressure 118/72 126/74 148/71 H Pulse Oximetry 95 97 96 Oxygen Delivery 09/03/22 03:54 09/03/22 10:21 09/03/22 09:00 Temperature 98.7 F Pulse Rate 76 75 Respiratory Rate 18 Blood Pressure 144/81 H 184/56 H Pulse Oximetry 97 Oxygen Delivery Room Air 09/03/22 11:27 Temperature Pulse Rate Respiratory Rate Blood Pressure 114/76 Pulse Oximetry Oxygen Delivery Intake/Output Intake/Output: Intake & Output 08/31/22 09/01/22 09/02/22 09/03/22 23:59 23:59 23:59 23:59 Intake Total 2690 2780 940 Output Total 235 1500 450 Balance 2455 1280 490 Meds/Results Medications: Active Medications Generic Name Dose Route Start Last Admin Trade Name Freq PRN Reason Stop Dose Admin Acetaminophen 1,000 mg 09/01/22 18:00 09/03/22 06:19 Acetaminophen 500 Mg Tablet PO 1,000 mg Q6HR SHIV Administration Enoxaparin Sodium 40 mg 09/02/22 09:00 09/02/22 07:49 Enoxaparin 40 Mg/0.4 Ml Syringe SUB-Q 40 mg DAILY SHIV Administration Losartan Potassium 50 mg 09/03/22 09:00 09/03/22 08:51 Losartan Potassium 50 Mg Tablet PO 50 mg DAILY SHIV Administration Morphine Sulfate 2 mg 09/01/22 14:33 Morphine Sulfate (*Crx) 2 Mg/Ml Inj IV PUSH Q2H PRN Pain Rated 4-6 Morphine Sulfate 4 mg 09/01/22 14:33 Morphine Sulfate (*Crx) 4 Mg/Ml Inj IV PUSH Q2H PRN Pain Rated 7-10 Ondansetron HCl 4 mg 09/01/22 14:33 09/02/22 07:45 Ondansetron Inj 4 Mg/2 Ml Vial IV PUSH 4 mg Q4H PRN Administration Nausea And Vomiting Oxycodone HCl 5 mg 09/01/22 14:33 09/01/22 21:23 Oxycodone Hcl (*Crx) 5 Mg Tab Ir PO 5 mg Q4H PRN Administration Pain Rated 4-6 Oxycodone HCl 10 mg 09/01/22 14:33 09/03/22 06:21 Oxycodone Hcl (*Crx) 5 Mg Tab Ir PO 10 mg Q4H PRN Administration Pain Rated 7-10 Pantoprazole Sodium 40 mg
[2022-09-03 13:21] VITALS: BP 149/83; PULSE 66; RESP 15; TEMP 36.7; O2SAT 99
--- NOTE | 2022-09-03 14:25 | PM.DS ---
DS: Admitting Diagnosis Discharge Date 09/03/22 Admitting Diagnosis High-grade dysplasia in colonic adenoma DS: Discharge Diagnosis Discharge Diagnosis (1) High grade dysplasia in colonic adenoma: Code(s): D12.6 - Benign neoplasm of colon, unspecified Status: Acute (2) Hypertension: Onset Date: Unknown Qualifiers: Hypertension type: primary hypertension Qualified Code(s): I10 - Essential (primary) hypertension Code(s): I10 - Essential (primary) hypertension Status: Acute DS: Summary Hospital Course Reason for hospitalization: This is a 61-year-old man who presented on 09/01/2022 for a left hemicolectomy. He has a recent history of left colon cancer and underwent hand assisted laparoscopic left hemicolectomy in June of 2021. He then underwent a colonoscopy 1 year out from that surgery and was found to have a recurrent polyp with dysplasia at the anastomosis. He now presents for resection of that region. Hospital Course: On 09/01/2022 the patient had a laparoscopic left hemicolectomy with an anastomosis, de Maryuri assisted, by Dr. Prater. The surgery was uneventful and he was admitted to the surgical floor postoperatively. He was started on clear liquids and has slowly been advanced to a low-fiber diet over the last 2 days. Bowel function returned on postop day 1. Initially, he was having some dark bloody bowel movements. Labs were monitored and his hemoglobin trended down slightly but is stable today at 9.9. He is no longer having any bloody bowel movements today. He did have an episode of vomiting early in the morning postop day 1, but no further issues since. He is tolerating activity. His Nj catheter was removed on postop day 1 and he has been voiding without difficulty since. His postoperative pain has been well controlled with oral analgesics. The patient is stable for discharge this afternoon. Pathology still pending on discharge. Patient has follow-up scheduled with Dr. Prater in 2 weeks. Status at Discharge Functional status at discharge: independent ambulation Overall status at discharge: patient is progressing back to baseline Time Spent with Patient Time attestation: Total time spent providing and/or coordinating discharge services: Time spent: Less than 30 minutes DS: Data Data Completed and Pending Pending studies at discharge: Pending at discharge 09/01/22 12:29 Surgical [PTH] Routine Labs on day of discharge: Labs from last 24 hours 09/03/22 09/02/22 04:57 17:34 WBC 6.9 RBC 3.16 L Hgb 9.9 L 10.3 L Hct 29.5 L 30.2 L MCV 93.4 MCH 31.3 MCHC 33.6 RDW 13.7 Plt Count 137 L MPV 9.4 % Immature Plt Fraction 2.4 Sodium 136 L Potassium 3.4 Chloride 104 Carbon Dioxide 27 Anion Gap 5 L BUN 10 D Creatinine 0.70 Estim Creat Clear Calc 119 Estimated GFR > 60 Glucose 107 Calcium 8.4 Procedures/Treatments: Procedures Operation Date: 09/01/22 09:30 Actual Procedure Side Surgeon p Robotic Assisted Laparoscopic Left Hemicolectomy Left Jb Prater, DO Discharge Plan Discharge Attending physician on discharge: Jb Prater Discharging Clinician: Neomy Dee Anticipated Discharge Date/Time: 09/03/22 14:41 Patient Disposition: Home, Self-Care Activity: may shower and other - see discharge instructions Diet: as tolerated Wound Care Instructions: incision open to air Discharge Instructions: DISCHARGE INSTRUCTIONS FOR DR. PRATER 1. May shower, no soaking in bath x 2weeks. 2. Call office for: Wound increasingly painful or bleeding Vomiting Fever of greater than 101 degrees 3. No heavy lifting > 10-15 pounds x 2 weeks 4. No driving for 1 week 5. Ice to surgical site for 48 hours (30 min on, then 30 min off). 6. Up walking 10-30 minutes three times per day. 7. Resume previou
== END 2022-09-03 15:43 | disposition home or self-care (01) | DRG 331 ==
LOC: ANH2MED 14:35
PROVIDERS: Admitting Provider Surgery; PCP Internal Medicine; Visit Provider Nurse Practitioner Family
PROC: 0DTF4ZZ Resection of Right Large Intestine, Percutaneous Endoscopic Approach (ICD-10-PCS; principal; 2022-09-01 09:30)
DX: D12.6 Benign neoplasm of colon, unspecified (principal); E78.5 Hyperlipidemia, unspecified; I10 Essential (primary) hypertension; K21.9 Gastro-esophageal reflux disease without esophagitis; Z85.038 Personal history of other malignant neoplasm of large intestine; Z96.641 Presence of right artificial hip joint; Z90.49 Acquired absence of other specified parts of digestive tract; Z87.891 Personal history of nicotine dependence
CPT/HCPCS: 36415; 80048; 85014; 85018; 85025; 85027; 85055; 86850; 86900; 86901; 88309; 88342; A9270; J0690; J1100; J1170; J1650; J1885; J2250; J2370; J2405; J2704; J2710; J3010; J7030; J7120

== ENCOUNTER → 2023-01-01 07:00 | Outpatient (CLI) | payer OTHER, SELFPAY ==
--- NOTE | ~2023-01-01 | MR_ITS ---
EXAMINATION: MR lumbar spine wo con DATE: 01/01/2023 07:29 INDICATION: Low back pain. Bilateral sciatica. TECHNIQUE: Magnetic resonance imaging (MRI) of the lumbar spine was performed without intravenous con trast. Sequences included sagittal T2-weighted FSE, sagittal T2-weighted FS FSE, sagittal T1-weighted FSE, and axial T2-weighted FSE. COMPARISON: Lumbar spine radiographs 01/01/2023 FINDINGS: Bone alignment is normal. There is mild chronic anterior wedging of T11 vertebral body. The re is mildly decreased disc height at T10-T11 and L4-L5. The distal spinal cord signal intensity is n ormal. The conus medullaris is at T12. The following disc levels are specifically discussed: L1-L2: There is a central protrusion. There is mild bilateral facet joint osteoarthritis. There is no neural foraminal stenosis. There is mild central canal stenosis. L2-L3: The disc is bulging. There is mild bilateral facet joint osteoarthritis. There is no neural fo raminal stenosis. There is mild central canal stenosis. L3-L4: The disc is bulging and has an annular fissure. There is mild right and moderate left facet madhu int osteoarthritis. There is mild bilateral neural foraminal stenosis. There is mild central canal st enosis. L4-L5: The disc is bulging with superimposed left subarticular zone extrusion with mass effect on lef t L5 nerve root in left lateral recess. There is severe bilateral facet joint osteoarthritis. There i s mild right and moderate left neural foraminal stenosis. There is mild central canal stenosis at the midline. There is severe stenosis of left lateral recess. L5-S1: There is a central protrusion. There is severe right and moderate left facet joint osteoarthri tis. There is mild bilateral neural foraminal stenosis. There is mild central canal stenosis. IMPRESSION: 1. Extrusion at L4-L5 with mass effect on left L5 nerve root. Reviewed, dictated and finalized at location A.
--- NOTE | ~2023-01-01 | XR_ITS ---
XR lumbar spine 6V w bending 01/01/2023 08:15 Indication: Low back pain. Sciatica. Procedure: 7 views lumbar spine Comparison: No prior studies for comparison. Findings: There is mild multilevel disc narrowing. There is mild facet hypertrophy of the mid and low er lumbar spine. No fracture, subluxation or dislocation. No evidence for spondylolisthesis. No alter ation of alignment with flexion and extension. Mild levoscoliosis. Pedicles intact. Sacral foramen ar e symmetric. There is atherosclerosis of the aorta. Impression: 1: Mild lumbar spondylosis. Reviewed, dictated and finalized at location B. Impression: 1: Mild lumbar spondylosis.
== END ==
PROVIDERS: PCP Family Medicine; Visit Provider Anesthesiology Pain Medicine
DX: M54.42 Lumbago with sciatica, left side (principal); M54.41 Lumbago with sciatica, right side; M51.26 Other intervertebral disc displacement, lumbar region; M47.816 Spondylosis without myelopathy or radiculopathy, lumbar region
CPT/HCPCS: 72114; 72148

== ENCOUNTER 2023-02-22 01:43 | Day surgery (SDC) | payer OTHER, SELFPAY ==
[2023-02-12 14:38] VITALS: BMI 32.5
--- NOTE | 2023-02-12 14:43 | PC.NURSE ---
Report to the Outpatient Waiting Room, entrance under the green pavilion located off [facility], at time _1115_ on date _[id number]_. Planned Procedure Time: 1215_. Time changes happen often and if your time is changed the preop area will call you the afternoon before. - You and your visitor will be asked to self-screen and do not enter if you have any COVID symptoms. - A mask is optional within the hospital at this time. 1. It is alright to eat a light breafast/lunch prior to procedure depending on schedule time. Do not eat or drink anything other than scheduled medications with small amounts of clear liquid (water) for two hours prior to procedure. 2. Take a bath/shower the evening before and morning of procedure. 3. Please take your scheduled medications, especially blood pressure and diabetes medications as prescribed, with small sips of water prior to procedure. You may also take your prescribed pain medicaitons as needed. DO NOT STOP ANY OF YOUR OTHER PRESCRIPTION MEDICATIONS PRIOR TO SURGERY ?EXCEPT THE FOLLOWING Please no make-up, nail american, hairspray, perfume, deodorant, or body powder the day of surgery. No jewelry (including any body piercings) or valuables the day of surgery, leave them at home. Please take a shower or bath the night before, or the morning of, surgery with an antibacterial soap. Wear comfortable, loose fitting clothing. - Jewelry must be removed prior to entering the operating room. Rings and piercings that are not removed may be cut off. - The hospital will not accept responsibility for valuables. - Please leave all valuables, including medications, at home the day of surgery. Follow any additional instructions given to you from your surgeon. If you or anyone in your household have experienced Covid symptoms in the past week, please notify your surgeon or the nurse liaison at the phone number below for possible testing. Telephone instructions given to _Patient__and asked if any additional questions and then verbalized understanding. Patient advised to call surgeon office or pre surgery nurse liaison [phone] if any additional questions.
--- NOTE | ~2023-02-22 | XR_ITS ---
EXAMINATION: XR fluoroscopy no charge DATE: 02/22/2023 14:16 INDICATION: Steroid injection TECHNIQUE: 61 fluoroscopic images of the lumbar spine were obtained during procedure performed by Dr. Brand. Radiologist was not present for the imaging or procedure. The amount of fluoroscopy time used during this procedure was 1.0 minutes. COMPARISON: None. FINDINGS: Images demonstrate spinal needles with injected contrast opacifying the perineural space at the left and right L4-L5 neural foramina. IMPRESSION: 1. Fluoroscopy utilized during pain management procedure at the lower lumbar spine. See procedure not e for further detail. Reviewed, dictated and finalized at location A. IMPRESSION: 1. Fluoroscopy utilized during pain management procedure at the lower lumbar sp ine. See procedure note for further detail.
--- NOTE | 2023-02-22 05:33 | PM.HPGS ---
History of Present Illness History of Present Illness Consent: Risks, benefits, and alternatives have been discussed and questions answered. Patient agrees to proceed with procedure. Chief complaint: lumbar region radiculopathy Narrative: Brennan Varner is a 62 year old male with chronic, recalcitrant lumbar radiculopathy secondary to lumbosacral spondylosis and stenosis resulting in severe pain and limitation in activities of daily living, self-care despite aggressive conservative therapies. Review of Systems Review of Systems: All systems reviewed & are unremarkable except as noted in HPI and below PMFSH Past Medical History Medical History Dyslipidemia (Unknown) First degree AV block GERD (gastroesophageal reflux disease) (~05/2021) Hypertension (Unknown) Leg pain Mass of colon Numbness Painful joint Snoring Vasectomy planned Surgical History Surgical History History of colon resection Hand assisted, laparoscopic left colon resection (distal transverse and proximal half of the descending colon). 06/23/21 History of total right hip replacement (~06/29/22) S/P left hemicolectomy lap left hemicolectomy with anastomosis, da Maryuri assisted 09/01/22 Family History Family History Father Cancer Multiple Myeloma Mother Cancer Lung Social History Social History Smoking packs per day: 1 Smoking cigarettes per day: 20.0 Years smoked: 10 Smoking pack-years: 10.00 Smoking status: Former smoker Tobacco type: cigarettes Second hand tobacco smoke exposure: No Smoking end date: 02/12/97 Alcohol intake: current Drinks per week: 17 Alcohol use details: BEER on the weekends Substance use: never Substance use type: does not use Lack of Transportation: No Lack of Food: Never True Current Housing: I Have Housing Concerned About Future Housing: No Difficulty Paying Gas/Electric Bills: No Difficulty Paying for Meds: No Currently Unemployed: No Education: High School Diploma/GED Difficulty w/ Childcare or Family Care: No Living arrangements: with family Additional living arrangements comments: Occupation/Education: occupation 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 [employer] Gender identity (if verbalized by the patient): Male Sexual Orientation (if Verbalized by the Patient): Straight or Heterosexual Spiritual care concerns: No Meds Home Medications and Allergies Home Medications Medication Instructions Recorded Confirmed Type omeprazole 20 mg capsule,delayed 20 mg PO DAILY #90 caps 03/10/21 02/12/23 Rx release cholecalciferol (vitamin D3) 50 50 mcg PO DAILY 06/17/21 02/12/23 History mcg (2,000 unit) capsule sildenafil 100 mg tablet (Viagra) 100 mg PO DAILY PRN sexual 11/24/21 02/12/23 Rx activity #30 tabs rosuvastatin 20 mg tablet (Crestor) 20 mg PO DAILY #90 tabs 07/02/22 02/12/23 Rx losartan 50 mg tablet 50 mg PO DAILY #90 tabs 08/24/22 02/12/23 Rx ibuprofen 800 mg tablet 800 mg PO TID PRN pain #60 tabs 01/18/23 02/12/23 Rx ferrous sulfate 325 mg (65 mg 325 mg PO DAILY 02/12/23 02/12/23 History iron) tablet Allergies Allergy/AdvReac Type Severity Reaction Status Date / Time No Known Allergies Allergy Verified 02/12/23 14:36 Exam Const: General: cooperative, healthy appearing and no acute distress Nutritional Appearance: average body habitus HENMT: Head: normal to inspection Eyes: General: appearance normal, both eyes and all related structures Neck: Neck: normal visual inspection Chest: Chest palpation & inspection: normal inspection of the chest Resp: Effort & Inspection: normal respiratory effort Auscultation: clear to auscultation bilaterally Cardio: Rate: regular
--- NOTE | 2023-02-22 05:36 | WPDHPUPDATE1 ---
History and Physical Update Update Date/Time: 02/22/23 05:36 History and Physical has been reviewed, including an updated exam of the patient. There are NO changes in the patient's condition. Risks, benefits, and alternatives have been discussed and questions answered. Patient agrees to proceed with procedure.
[2023-02-22 11:45] VITALS: BP 163/95; PULSE 99; RESP 16; TEMP 36.4; O2SAT 99
[2023-02-22 13:54] VITALS: BP 198/99; PULSE 76; RESP 20; O2SAT 97
[2023-02-22] MEDS: BETAMETHASONE SOD PHOS/ACETATE 30 MG/5 ML VIAL 6 MG XX (14:00)
[2023-02-22 14:04] VITALS: BP 185/90; PULSE 82; RESP 20; O2SAT 97
[2023-02-22] MEDS: LIDOCAINE HCL 1% PF INJ 5 ML VIAL INFILTRATE (14:05)
[2023-02-22 14:08] VITALS: BP 191/97; PULSE 85; RESP 20; O2SAT 97
[2023-02-22 14:14] VITALS: BP 188/86; PULSE 80; RESP 20
--- NOTE | 2023-02-22 14:58 | W.PM.PROC2 ---
Procedure Note - Detailed Date of Procedure 02/22/23 Pre-op Diagnosis lumbar region radiculopathy Post-op Diagnosis Same Procedure Performed Bilateral L4-5 transforaminal epidural steroid injection with fluoroscopy and contrast control. Surgeon Skyler rBand MD Anesthesia Local Description of Procedure INFORMED CONSENT: Risks, benefits and alternatives to the procedure were discussed in detail with the patient who expressed explicit understanding and consent to proceed. Patient was informed verbally and in written form regarding the risks associated with the procedure including the low risk of serious infection, bleeding/bruising, allergic reaction, nerve or organ injury, paralysis, procedural site pain or discomfort, worsening pain and/or mobility, failure to treat and/or disfigurement. The patient expressed explicit understanding and consent to proceed. All materials required for the procedure were available prior to procedure start. Site and side was marked prior to procedure and confirmed in the presence of the patient. PROCEDURE IN DETAIL: The patient was brought to the procedural suite and placed in the prone position. Patient was made comfortable with use of pillows under the head/chest, hips and ankles. Skin overlying the injection site was prepared broadly with ChloraPrep applicator and draped in a sterile manner. Aseptic technique was employed throughout. The endplates of the vertebral body at the site of interest were aligned in the AP view. Ipsilateral oblique angulation was utilized to better visualize the neuroforamen of interest. Local anesthesia was established by infiltration with approximately 5 mL of 2% lidocaine via a 1-1/2 inch 27-gauge needle. A 22-gauge 3.5 inch Jey (pencil point) spinal needle was advanced until the needle approached the 6 o'clock position on the pedicle just superior to the exiting nerve root. on the right at L4-5. Lateral view was utilized to confirm appropriate position of the needle tip within the superior and posterior portion of the respective foramen. In an AP view, 1 mL of Omipaque 300 contrast medium was injected after negative aspiration for CSF, blood or other bodily fluid, showing appropriate neurogram without evidence of intravascular or intrathecal spread of contrast. Digital subtraction imaging was used with an additional 1ml of the same contrast medium to confirm absence of intravascular contrast spread. A 1mL solution containing 3 mg of betamethasone was injected after negative repeat aspiration. Appropriate spread of the injectate was confirmed with washout of previously injected contrast. No parasthesias were elicited. Needle was removed completely intact without difficulty. The same exact procedure was repeated for all remaining levels on the contralateral side, left L4-5 neuroforamen, modified as necessary to accommodate for the new target location with identical findings and results and no evidence of complication. Images were saved and documented in the patient chart. Patient's skin was cleaned and sterile bandage applied. The patient tolerated the procedure well. The patient was transported to the recovery area in stable condition where they were observed for an appropriate amount of time prior to discharge, without evidence of complication. The patient was instructed to avoid excessive activity for the next 48 hours, including climbing and frequent use of stairs. Showers only for 48 hours. They were instructed not to drive or operate heavy machinery for 24 hours. They are to monitor for severe headaches, fevers, chills, night sweats, erythema/swelling at the site or any other signs of infection, bleeding/bruising, bowel or bladder changes as well as new pain, weakness or numbness in the upper or lower extremity. Should they notice these changes, they are instructed to call our office immediately or report directly to the nearest Emergency Department if no answer or if after posted office hours. [place]
== END 2023-02-22 14:28 | disposition home or self-care (01) ==
PROVIDERS: PCP Family Medicine; Visit Provider Anesthesiology Pain Medicine
PROC: (CPT 64483; principal; 2023-02-22 12:15)
DX: M47.27 Other spondylosis with radiculopathy, lumbosacral region (principal); G89.29 Other chronic pain; E78.5 Hyperlipidemia, unspecified; I44.0 Atrioventricular block, first degree; K21.9 Gastro-esophageal reflux disease without esophagitis; Z90.49 Acquired absence of other specified parts of digestive tract; Z87.891 Personal history of nicotine dependence
CPT/HCPCS: 64483; 99199; J0702

== ENCOUNTER 2023-04-27 01:19 | Day surgery (SDC) | payer OTHER, SELFPAY ==
--- NOTE | 2023-04-23 08:48 | PC.NURSE ---
Report to the Outpatient Waiting Room, entrance under the green pavilion located off [facility], at time _1100 on date __04/27/23 . Planned Procedure Time: 1200 . Time changes happen often and if your time is changed the preop area will call you the afternoon before. - You and your visitor will be asked to self-screen and do not enter if you have any COVID symptoms. - A mask is optional within the hospital at this time. LIGHT BREAKFAST MORNING OF SURGERY. NOTHING TO EAT OR DRINK AFTER 10 AM MORNING OF SURGERY Take the following medications with a SIP of water the morning of surgery: __ROUTINE MORNING MEDICATIONS DO NOT STOP ANY OF YOUR OTHER PRESCRIPTION MEDICATIONS PRIOR TO SURGERY ?EXCEPT THE FOLLOWING Medications to discontinue per physician NONE Date to take last dose Please no make-up, nail luxembourgish, hairspray, perfume, deodorant, or body powder the day of surgery. No jewelry (including any body piercings) or valuables the day of surgery, leave them at home. Please take a shower or bath the night before, or the morning of, surgery with an antibacterial soap. Wear comfortable, loose fitting clothing. Children are encouraged to wear pajamas. - Jewelry must be removed prior to entering the operating room. Rings and piercings that are not removed may be cut off. - The hospital will not accept responsibility for valuables. - Please leave all valuables, including medications, at home the day of surgery. LOCAL ANESTHESIA MAY DRIVE YOURSELF HOME - We recommend that an adult stay with you for 24 hours following discharg Follow any additional instructions given to you from your surgeon. If you or anyone in your household have experienced Covid symptoms in the past week, please notify your surgeon or the nurse liaison at the phone number below for possible testing. Telephone instructions given to ___PT and asked if any additional questions and then verbalized understanding. Patient advised to call surgeon office or pre surgery nurse liaison [phone] if any additional questions.
[2023-04-23 08:53] VITALS: BMI 33.2
--- NOTE | ~2023-04-27 | XR_ITS ---
EXAMINATION: XR fluoroscopy no charge DATE: 04/27/2023 08:20 INDICATION: Steroid injection TECHNIQUE: 54 fluoroscopic images of the lumbar spine were obtained during procedure performed by Dr. Brand. Radiologist was not present for the imaging or procedure. The amount of fluoroscopy time used during this procedure was 0.7 minutes. COMPARISON: None. FINDINGS: Images demonstrate spinal needles and injected contrast opacifying the perineural space and neural fo ramina on a couple levels of one side of the lower lumbar spine. Definitive determination of the loca tion is limited and a small [id number] imaging obtained without markers. No evident intravascular extension of the injected contrast. IMPRESSION: 1. Fluoroscopy utilized during pain management procedure at the lower lumbar spine. See procedure not e for further detail. Reviewed, dictated and finalized at location A. CLIPPER IMPRESSION: 1. Fluoroscopy utilized during pain management procedure at the lower lumbar sp ine. See procedure note for further detail.
--- NOTE | 2023-04-27 06:12 | PM.HPGS ---
History of Present Illness History of Present Illness Consent: Risks, benefits, and alternatives have been discussed and questions answered. Patient agrees to proceed with procedure. Chief complaint: lumbar radiculopathy, lumbar stenosis Narrative: Brennan Varner is a 62 year old male with chronic, recalcitrant and disabling lumbar radiculopathy secondary to lumbar spinal stenosis unresponsive to optimal conservative care over the past 6-12 months presenting for right-sided L3-4, L4-5 transforaminal epidural steroid injection under fluoroscopy with local anesthesia. Review of Systems Review of Systems: All systems reviewed & are unremarkable except as noted in HPI and below PMFSH Past Medical History Medical History Dyslipidemia (Unknown) First degree AV block GERD (gastroesophageal reflux disease) (~05/2021) Hypertension (Unknown) Leg pain Mass of colon Numbness Painful joint Snoring Vasectomy planned Surgical History Surgical History History of colon resection Hand assisted, laparoscopic left colon resection (distal transverse and proximal half of the descending colon). 06/23/21 History of total right hip replacement (~06/29/22) S/P left hemicolectomy lap left hemicolectomy with anastomosis, da Maryuri assisted 09/01/22 Family History Family History Father Cancer Multiple Myeloma Mother Cancer Lung Social History Social History Smoking packs per day: 1 Smoking cigarettes per day: 20.0 Years smoked: 10 Smoking pack-years: 10.00 Smoking status: Former smoker Tobacco type: cigarettes Second hand tobacco smoke exposure: No Smoking end date: 05/10/97 Alcohol intake: current Drinks per week: 17 Alcohol use details: BEER on the weekends Substance use: never Substance use type: does not use Lack of Transportation: No Lack of Food: Never True Current Housing: I Have Housing Concerned About Future Housing: No Difficulty Paying Gas/Electric Bills: No Difficulty Paying for Meds: No Currently Unemployed: No Education: High School Diploma/GED Difficulty w/ Childcare or Family Care: No Living arrangements: with family Additional living arrangements comments: Occupation/Education: occupation Additional occupation/education comments: [employer] 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[employer] 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 [employer] Gender identity (if verbalized by the patient): Male Sexual Orientation (if Verbalized by the Patient): Straight or Heterosexual Spiritual care concerns: No Meds Home Medications and Allergies Home Medications Medication Instructions Recorded Confirmed Type omeprazole 20 mg capsule,delayed 20 mg PO DAILY #90 caps 03/10/21 04/23/23 Rx release cholecalciferol (vitamin D3) 50 50 mcg PO DAILY 06/17/21 04/23/23 History mcg (2,000 unit) capsule sildenafil 100 mg tablet (Viagra) 100 mg PO DAILY PRN sexual 11/24/21 04/23/23 Rx activity #30 tabs ferrous sulfate 325 mg (65 mg 325 mg PO DAILY 02/12/23 04/23/23 History iron) tablet losartan 50 mg tablet 50 mg PO DAILY #90 tabs 02/22/23 04/23/23 Rx ibuprofen 800 mg tablet 800 mg PO TID PRN pain #60 tabs 03/17/23 04/23/23 Rx rosuvastatin 20 mg tablet (Crestor) 20 mg PO DAILY #90 tabs 04/15/23 04/23/23 Rx cyanocobalamin (vitamin B-12) 1,000 mcg PO DAILY 04/23/23 04/23/23 History 1,000 mcg tablet Allergies Allergy/AdvReac Type Severity Reaction Status Date / Time No Known Allergies Allergy Verified 04/23/23 08:40 Exam Const: General: cooperative, healthy appearing and no acute distress Nutritional Appearance: average body habitus HENMT: Head: normal to inspection Eyes: General: appearance normal, both eyes and all related structures Neck: Neck: normal visual inspection Chest: C
--- NOTE | 2023-04-27 06:20 | WPDHPUPDATE1 ---
History and Physical Update Update Date/Time: 04/27/23 06:20 History and Physical has been reviewed, including an updated exam of the patient. There are NO changes in the patient's condition. Risks, benefits, and alternatives have been discussed and questions answered. Patient agrees to proceed with procedure.
[2023-04-27 07:00] VITALS: BP 164/91; PULSE 89; RESP 16; TEMP 35.7; O2SAT 97
[2023-04-27 07:47] VITALS: BP 183/97; PULSE 78; RESP 16; O2SAT 98
[2023-04-27 07:57] VITALS: BP 189/104; PULSE 76; RESP 18; O2SAT 97
[2023-04-27] MEDS: BETAMETHASONE SODIUM PHOSPHATE PF INJ 6 MG/ML VIAL INFILTRATE (08:00)
[2023-04-27] MEDS: LIDOCAINE HCL 2% PF INJ 5 ML VIAL INFILTRATE (08:01)
[2023-04-27 08:07] VITALS: BP 206/108; PULSE 78; O2SAT 98
--- NOTE | 2023-04-27 08:08 | SUR.OPER ---
Dr. Brand made aware of elevated blood pressures. Most likely secondary to discomfort from procedure. Will continue to monitor in Recovery.
[2023-04-27 08:13] VITALS: BP 201/99; PULSE 74; RESP 18; O2SAT 98
[2023-04-27 08:20] VITALS: BP 159/94; PULSE 75; RESP 18
--- NOTE | 2023-04-27 09:33 | W.PM.PROC2 ---
Procedure Note - Detailed Date of Procedure 04/27/23 Pre-op Diagnosis lumbar radiculopathy, lumbar stenosis Post-op Diagnosis Same Procedure Performed Right L3-4, L4-5 transforaminal epidural steroid injection with fluoroscopy. Surgeon Skyler Brand MD Anesthesia Local Description of Procedure INFORMED CONSENT: Risks, benefits and alternatives to the procedure were discussed in detail with the patient who expressed explicit understanding and consent to proceed. Patient was informed verbally and in written form regarding the risks associated with the procedure including the low risk of serious infection, bleeding/bruising, allergic reaction, nerve or organ injury, paralysis, procedural site pain or discomfort, worsening pain and/or mobility, failure to treat and/or disfigurement. The patient expressed explicit understanding and consent to proceed. All materials required for the procedure were available prior to procedure start. Site and side was marked prior to procedure and confirmed in the presence of the patient. PROCEDURE IN DETAIL: The patient was brought to the procedural suite and placed in the prone position. Patient was made comfortable with use of pillows under the head/chest, hips and ankles. Skin overlying the injection site was prepared broadly with ChloraPrep applicator and draped in a sterile manner. Aseptic technique was employed throughout. The endplates of the vertebral body at the site of interest were aligned in the AP view. Ipsilateral oblique angulation was utilized to better visualize the neuroforamen of interest. Local anesthesia was established by infiltration with approximately 5 mL of 2% lidocaine via a 1-1/2 inch 27-gauge needle. A 22-gauge 3.5 inch Jey (pencil point) spinal needle was advanced until the needle approached the 6 o'clock position on the pedicle just superior to the exiting nerve root. on the right at L4-5. Lateral view was utilized to confirm appropriate position of the needle tip within the superior and posterior portion of the respective foramen. In an AP view, 1 mL of Omnipaque 300 contrast medium was injected after negative aspiration for CSF, blood or other bodily fluid, showing appropriate neurogram without evidence of intravascular or intrathecal spread of contrast. Digital subtraction imaging was used with an additional 1ml of the same contrast medium to confirm absence of intravascular contrast spread. A 1mL solution containing 6 mg of betamethasone was injected after negative repeat aspiration. Appropriate spread of the injectate was confirmed with washout of previously injected contrast. No parasthesias were elicited. Needle was removed completely intact without difficulty. The same exact procedure was repeated for all remaining levels on the ipsilateral side, right L3-4 neuroforamen, modified as necessary to accommodate for the new target location with identical findings and results and no evidence of complication. Images were saved and documented in the patient chart. Patient's skin was cleaned and sterile bandage applied. The patient tolerated the procedure well. The patient was transported to the recovery area in stable condition where they were observed for an appropriate amount of time prior to discharge, without evidence of complication. The patient was instructed to avoid excessive activity for the next 48 hours, including climbing and frequent use of stairs. Showers only for 48 hours. They were instructed not to drive or operate heavy machinery for 24 hours. They are to monitor for severe headaches, fevers, chills, night sweats, erythema/swelling at the site or any other signs of infection, bleeding/bruising, bowel or bladder changes as well as new pain, weakness or numbness in the upper or lower extremity. Should they notice these changes, they are instructed to call our office immediately or report directly to the nearest Emergency Department if no answer or if after posted office hours. COMPLICATIO
== END 2023-04-27 08:37 | disposition home or self-care (01) ==
PROVIDERS: PCP Family Medicine; Visit Provider Anesthesiology Pain Medicine
PROC: (CPT 64483; principal; 2023-04-27 07:30)
DX: M48.062 Spinal stenosis, lumbar region with neurogenic claudication (principal); M54.16 Radiculopathy, lumbar region; I10 Essential (primary) hypertension; E78.5 Hyperlipidemia, unspecified; K21.9 Gastro-esophageal reflux disease without esophagitis; Z90.49 Acquired absence of other specified parts of digestive tract; Z98.0 Intestinal bypass and anastomosis status; Z87.19 Personal history of other diseases of the digestive system; Z87.891 Personal history of nicotine dependence
CPT/HCPCS: 64483; 64484; 99199; J2001

== ENCOUNTER 2024-03-24 11:48 | Outpatient (CLI) | payer OTHER, SELFPAY ==
--- NOTE | ~2024-03-24 | XR_ITS ---
EXAMINATION: XR hip LT 2V w AP pelvis DATE: 03/24/2024 12:08 INDICATION: Left hip pain. TECHNIQUE: An anteroposterior view of the pelvis on 2 radiographs and 2 views of left hip were obtain ed. COMPARISON: Pelvis and hip radiographs 03/04/2022 FINDINGS: There is a total right hip arthroplasty in near-anatomic alignment. No fracture. No peripro sthetic lucency to suggest loosening or infection. There is severe left hip osteoarthritis. There is mild lumbar spondylosis. IMPRESSION: 1. Severe left hip osteoarthritis. 2. Total right hip arthroplasty in near-anatomic alignment. Reviewed, dictated and finalized at location A. ATTENDANT
== END 2024-03-24 11:49 | disposition home or self-care (01) ==
LOC: ANHIMG 11:51
PROVIDERS: PCP Family Medicine; Visit Provider Orthopaedic Surgery
DX: M16.12 Unilateral primary osteoarthritis, left hip (principal)
CPT/HCPCS: 73502

== ENCOUNTER 2024-04-12 13:35 | Outpatient (CLI) | payer OTHER, SELFPAY ==
[2024-04-12 14:17] LABS: Hematocrit 46.6 % (42.0-52.0); Hemoglobin 16.3 g/dL (14.0-18.0)
--- NOTE | 2024-04-12 14:30 | ECG_ITS ---
Test Date: 2024-04-12 14:38:54 Measurements Intervals [place] Rate: 78 P: 62 NC: 262 QRS: 25 QRSD: 89 T: 30 QT: 358 QTc: 409 Interpretive Statements SINUS RHYTHM WITH FIRST DEGREE AV BLOCK ABNORMAL ECG No previous ECG available for comparison Electronically Signed On 04-12-2024 16:42:29 DRIVER MATERIAL HANDLER by Richard Manley M.D.
[2024-04-12 14:36] LABS: Albumin Level 4.7 g/dL (3.5-5.1); Estimated Glomerular Filt Rate > 60; Glucose 123 mg/dL (65-110)
[2024-04-13 03:22] LABS: Hemoglobin A1C 5.5 % (<5.7)
== END 2024-04-12 13:36 | disposition home or self-care (01) ==
LOC: ANHLAB 13:36
PROVIDERS: PCP Family Medicine; Visit Provider Orthopaedic Surgery
DX: D50.9 Iron deficiency anemia, unspecified (principal); M16.12 Unilateral primary osteoarthritis, left hip; I44.0 Atrioventricular block, first degree; R73.03 Prediabetes
CPT/HCPCS: 36415; 82040; 82565; 82947; 83036; 85014; 85018; 93005

== ENCOUNTER 2024-05-31 13:40 | Outpatient (CLI) | payer OTHER, SELFPAY ==
[2024-05-31 15:08] LABS: Basophils Absolute Auto 0.1 K/mm3 (0.0-0.1); Basophils Percent Auto 0.6 % (0.2-1.2); Eosinophils Absolute Auto 0.1 K/mm3 (0-0.3); Eosinophils Percent Auto 1.5 % (0-4.4); Hematocrit 46.6 % (42.0-52.0); Hemoglobin 16.1 g/dL (14.0-18.0); Immature Granulocyte Absolute 0.04 K/mm3 (0.00-0.031); Immature Granulocyte Percent A 0.5 % (0-0.5); Lymphocytes Absolute Auto 1.55 K/mm3 (0.9-3.2); Lymphocytes Percent Auto 17.8 % (18.3-44.2); Mean Corpuscular HGB Conc 34.5 g/dl (32-36); Mean Corpuscular Hemoglobin 31.6 pg (26-34); Mean Corpuscular Volume 91.6 fl (80-100); Mean Platelet Volume 8.9 fl (7.4-10.4); Monocytes Absolute Auto 0.9 K/mm3 (0.1-0.6); Monocytes Percent Auto 10.7 % (2.6-8.5); Neutrophils Percent Auto 68.9 % (45.5-73.1); Platelet Count Result 176 k/mm3 (150-375); Red Blood Count 5.09 M/mm3 (4.6-6.20); Red Cell Distribution Width 12.4 % (11.5-14.5); White Blood Count 8.7 K/mm3 (4.5-10.0)
[2024-05-31 15:24] LABS: Albumin Level 4.6 g/dL (3.5-5.1); Estimated Glomerular Filt Rate > 60; Glucose 107 mg/dL (65-110)
[2024-05-31 15:34] LABS: Urine Cotinine NEGATIVE
[2024-05-31 16:19] LABS: MRSA (PCR) NOT DETECTED (NOT DETECTE)
--- OUTSIDE RECORDS SUMMARY | 2024-06-02 01:26 | XMS_ITS | Clinical Summary ---
Author Organization [facility] eda [facility] Address [address] [address] Care Team Providers Care Vegetable Vendor Name Role Phone Kam Vera MD Primary Care Provider [phone] Allergies No known active allergies Medications rosuvastatin (CRESTOR) 20 mg tablet rosuvastatin 20 mg tablet Active sildenafiL (VIAGRA) 100 mg tablet sildenafil 100 mg tablet TAKE 1 TABLET BY MOUTH ONCE DAILY NEEDED FOR SEXUAL ACTIVITY. ADMINISTER 30 MINUTES TO 4 HOURS BEFORE ACTIVITY Active omeprazole (PriLOSEC) 10 mg Capsule, Delayed Release(E.C.) Take 10 mg by mouth daily. Active CALCIUM CARBONATE-VITAM IN D3 ORAL Take by mouth. Acti ve losartan (COZAAR) 50 mg tablet Take 50 mg by mouth 2 times daily. 2 Active Active Problems Problem Noted Date Diagnosed Date Malignant neoplasm of descending colon 2 Encounters Date Type Department Care Team Description 05/31/2024 External Device Data [facility] ABSTRACTION Provider, Abstract 05/24/2024 External Device Data [facility] ABSTRACTION Provider, Abstract 05/16/2024 External Device Data [facility] ABSTRACTION Provider, Abstract from Last 3 Months Family History Relation Name Status Comments Brother 1 Alive Brother 2 Alive Daughter Alive Father Mother Sister 1 Alive Sister 2 Alive Son Alive Social History Tobacco Use Types Packs/Day Years Used Date Smoking Tobacco: Former Smokeless Tobacco: Never Tobacco Cessation:Counseling Given: Not Answered Alcohol Use Standard Drinks/Week Comments Yes 0 (1 standard drink = 0.6 oz pur e alcohol) Sex and Gender Information Value Date Recorded Sex Assigned at Not on file Legal 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 Gender Identity Not on file Sexual Orientation Not on file Last Filed Vital Signs Vital Sign Reading Time Taken Comments Blood Pressure 146/88 12/14/2023 11:05 AM CDT Pulse 85 12/14/2023 11:05 AM CDT Temperature 36.6 ??C (97.8 ??F) 12/14/2023 11:01 AM C DT Respiratory Rate 18 12/14/2023 11:01 AM CDT Oxygen Saturation 97% 12/14/2023 11:01 AM CDT Inhaled Oxygen Concentration - - Weight 107.5 kg (237 lb) 12/14/2023 11:01 AM CDT Height 182.9 cm (6') 10/15/2021 1:01 PM CDT Body Mass Index 32.14 10/15/2021 1:01 PM CDT Plan of Treatment Upcoming Encounters Date Type Department Care Team (Late st Contact Info) Description 06/20/2024 10:15 AM DEDICATED DRIVER Office Visit [facility] On[facility] H[facility]ology - [place] [address] [facility] [address] [place] [address] Jeremiah Iglesias MD [address] [facility] [address] [place] [address] Health Maintenance Due Date Last Done Comments Pre-Diabetes and Diabetes Screening 1960 DTAP/TDAP/TD VACCINES (1 - Tdap) 09/06/1978 ZOSTER VACCINE (1 of 2) 09/06/2009 INFLUENZA VACCINE (#1) 2023 RSV VACCINE (60+ or ) (1 - 1-dose 75+ series) 09/06/2034 PNEUMOCOCCAL VACCINE 0-64 YEARS Aged Out No longer eligible based on patient's age to complete this topic Insurance [employer] Care Teams Vegetable Vendor Relationship Specialty Start Date End Date Kam Vera MD [address] [place] [address] PCP - General Family Practice 01/22/23
--- OUTSIDE RECORDS SUMMARY | 2024-06-02 01:26 | XMS_ITS ---
Author Organization Unknown Medications Medication Instructions Effective Dates (start - stop) Status rosuvastatin calcium 20 MG O ral Tablet - Completed rosuvastatin calcium 20 MG O ral Tablet - Completed tadalafil 20 MG Oral Tablet [id number] :00:00Z - Completed ibuprofen 800 MG Oral Tablet [id number] 0:00:00Z - Completed losartan potassium 50 MG Ora l Tablet - Completed ibuprofen 800 MG Oral Tablet [id number] 0:00:00Z - Completed ibuprofen 800 MG Oral Tablet [id number] 0:00:00Z - Completed rosuvastatin calcium 20 MG O ral Tablet - Completed ibuprofen 800 MG Oral Tablet [id number] 0:00:00Z - Completed rosuvastatin calcium 20 MG O ral Tablet - Completed losartan potassium 50 MG Ora l Tablet - Completed losartan potassium 50 MG Ora l Tablet - Completed ibuprofen 800 MG Oral Tablet [id number] 0:00:00Z - Completed rosuvastatin calcium 20 MG O ral Tablet - Completed Patient Care team information Name Category Status Period Participants - - Proposed period not known -
== END 2024-05-31 13:41 | disposition home or self-care (01) ==
LOC: ANHSURGERY 13:44
PROVIDERS: PCP Family Medicine; Visit Provider Orthopaedic Surgery
DX: M16.12 Unilateral primary osteoarthritis, left hip (principal); Z01.818 Encounter for other preprocedural examination
CPT/HCPCS: 80307; 82040; 82565; 82947; 85025; 87641

== ENCOUNTER 2024-06-27 00:58 | Day surgery (SDC) | payer OTHER, SELFPAY ==
--- NOTE | 2024-05-31 13:37 | PC.NURSE ---
Report to the Outpatient Waiting Room, entrance under the green pavilion located off [facility], at time __8:30 AM on date _06/27/24 . Planned Procedure Time: __10:30 AM .? Time changes happen often and if your time is changed the preop area will call you the afternoon before. - You and your visitor will be asked to self-screen and do not enter if you have any COVID symptoms. Please call surgeon if you need to reschedule. - A mask is optional within the hospital at this time. Patients may have clear liquids (water, carbonated beverages, clear teas, apple juice) until 3 hours prior to surgery( 7:30 AM) with a maximum of 20 ounces. - No food from midnight until time of surgery and no smoking. This includes no chewing gum, candy or mints. - Take only the following medications with a SIP of water on the morning of surgery: ____NONE DO NOT STOP ANY OF YOUR OTHER PRESCRIPTION MEDICATIONS PRIOR TO SURGERY EXCEPT THE FOLLOWING Medications to discontinue per physician HOLD IBUPROFEN 7 DAYS PRE OP PER DR EASON. LAST DOSE 06/19/24. MAY TAKE TYLENOL IF NEEDED FOR PAIN. HOLD ALL VITAMINS 3 DAYS PRE OP .LAST DOSE 06/23/24 Please no make-up, nail luxembourger, hairspray, perfume, deodorant, or body powder the day of surgery.? No jewelry (including any body piercings) or valuables the day of surgery, leave them at home.? Please take a shower or bath the night before, or the morning of, surgery with an antibacterial soap.? Wear comfortable, loose fitting clothing.? Children are encouraged to wear pajamas. - Jewelry must be removed prior to entering the operating room.? Rings and piercings that are not removed may be cut off. - The hospital will not accept responsibility for valuables.? - Please leave all valuables, including medications, at home the day of surgery. If you are going home after surgery, a licensed miniature train driver must drive you home.? - NO public transportation without another adult if you receive anesthesia. - We recommend that an adult stay with you for 24 hours following discharge. - We also recommend that you do not drive, make important decision, drink alcoholic beverages, or take any drugs that were not prescribed by your health care provider for at least 24 hours after your discharge time. Follow any additional instructions given to you from your surgeon. VERBAL AND WRITTEN instructions given to __PATIENT and asked if any additional questions and then verbalized understanding. Patient advised to call surgeon office or pre surgery nurse liaison [phone] if any additional questions.
[2024-05-31 13:47] VITALS: BMI 32.7
[2024-06-27] VITALS (9 sets, daily range): BP systolic 137–167; BP diastolic 72–97; PULSE 67–89; RESP 12–18; TEMP 36.2–37; O2SAT 96–100
--- NOTE | ~2024-06-27 | XR_ITS ---
EXAMINATION: XR hip LT min 2V DATE: 06/27/2024 15:46 INDICATION: Left hip arthroplasty. Postop. TECHNIQUE: 2 views of left hip were obtained. COMPARISON: Left hip radiographs 06/12/2024 FINDINGS: There is a total left hip arthroplasty in near-anatomic alignment. No fracture. There is ga s in the soft tissues, consistent with recent surgery. IMPRESSION: 1. Total left hip arthroplasty in near-anatomic alignment. Reviewed, dictated and finalized at location A. [facility] [employer]
--- OUTSIDE RECORDS SUMMARY | 2024-06-27 01:01 | XMS_ITS ---
Author Organization Unknown Medications Medication Instructions Effective Dates (start - stop) Status rosuvastatin calcium 20 MG O ral Tablet - Completed rosuvastatin calcium 20 MG O ral Tablet - Completed tadalafil 20 MG Oral Tablet [id number] :00:00Z - Completed ibuprofen 800 MG Oral Tablet [id number] 0:00:00Z - Completed losartan potassium 50 MG Ora l Tablet - Completed ibuprofen 800 MG Oral Tablet [id number] 0:00:00Z - Completed ibuprofen 800 MG Oral Tablet [id number] 0:00:00Z - Completed rosuvastatin calcium 20 MG O ral Tablet - Completed ibuprofen 800 MG Oral Tablet [id number] 0:00:00Z - Completed rosuvastatin calcium 20 MG O ral Tablet - Completed losartan potassium 50 MG Ora l Tablet - Completed losartan potassium 50 MG Ora l Tablet - Completed ibuprofen 800 MG Oral Tablet [id number] 0:00:00Z - Completed rosuvastatin calcium 20 MG O ral Tablet - Completed Patient Care team information Name Category Status Period Participants - - Proposed period not known -
--- NOTE | 2024-06-27 07:24 | WPDHPUPDATE1 ---
History and Physical Update Update Date/Time: 06/27/24 07:24 History and Physical has been reviewed, including an updated exam of the patient. There are NO changes in the patient's condition. Risks, benefits, and alternatives have been discussed and questions answered. Patient agrees to proceed with procedure.
[2024-06-27] MEDS: ACETAMINOPHEN 500 MG TABLET 1000 MG PO (11:30)
[2024-06-27] MEDS: TRANEXAMIC ACID 1,000MG/ISO100 1,000 MG/100 ML BAG 200 MG IVPB (11:30)
--- NOTE | 2024-06-27 11:53 | P.PNAN_ITS ---
Anes - Initial Pre Proc Eval Procedure: Operation Date: 06/27/24 13:00 Proposed Procedures p Left Total Hip Arthroplasty - Rick Leone MD Date/Time: 06/27/24 11:53 Surgeon: Rick Leone MD Pre Op Diagnosis: primary OA left hip Patient Data Age: 63 Gender: M Height: 1.83 m Weight: 107 kg Last Vital Signs Temp 36.2 C L 06/27/24 11:30 Pulse 74 06/27/24 11:30 Resp 14 06/27/24 11:30 BP 157/87 H 06/27/24 11:30 Pulse Ox 99 06/27/24 11:30 O2 Del Method Room Air 06/27/24 11:30 Allergies Allergy/AdvReac Type Severity Reaction Status Date / Time No Known Allergies Allergy Verified 05/31/24 13:48 Home Medications ?Medication ?Instructions ?Recorded ?Confirmed ?Type omeprazole 20 mg capsule,delayed 20 mg PO DAILY #90 caps 03/10/21 05/31/24 Rx release cholecalciferol (vitamin D3) 50 50 mcg PO DAILY 06/17/21 05/31/24 History mcg (2,000 unit) capsule sildenafil 100 mg tablet (Viagra) 100 mg PO DAILY PRN sexual 11/24/21 05/31/24 Rx activity #30 tabs ferrous sulfate 325 mg (65 mg 325 mg PO DAILY 02/12/23 05/31/24 History iron) tablet cyanocobalamin (vitamin B-12) 1,000 mcg PO DAILY 04/23/23 05/31/24 History 1,000 mcg tablet tadalafil 20 mg tablet (Cialis) 20 mg PO DAILY PRN sexual activity 05/25/23 05/31/24 Rx #14 tabs rosuvastatin 20 mg tablet (Crestor) 20 mg PO DAILY #90 tabs 10/20/23 05/31/24 Rx hydrocortisone 2.5 % topical cream 1 applic topical BID PRN rash on 02/23/24 05/31/24 Rx right leg #30 grams terbinafine HCl 1 % topical cream 1 applic topical BID #30 grams 02/23/24 05/31/24 Rx ibuprofen 800 mg tablet See Rx Instructions .Route 03/23/24 05/31/24 Rx .COMPLEX #60 tabs losartan 50 mg tablet 50 mg PO BID #180 tabs 06/21/24 Rx aspirin 81 mg tablet,delayed 81 mg PO DAILY #28 tabs 06/27/24 Rx release (Enteric Coated Aspirin) oxycodone-acetaminophen 5 mg-325 1 - 2 tablet PO Q6H PRN pain #30 06/27/24 Rx mg tablet tabs prednisone 5 mg tablet 5 mg PO DAILY #21 tabs 06/27/24 Rx Laboratory Tests 06/27/24 11:23 Blood Type Pending Antibody Screen Pending Patient hx anesthesia problems: none Family hx anesthesia problems: none Results Review: All pre-operative results and documents have been reviewed as part of the pre- operative evaluation. [facility] Past Medical History Medical History Mass of colon Hypertension (Unknown) First degree AV block Dyslipidemia (Unknown) Vasectomy planned Leg pain Snoring Numbness Painful joint GERD (gastroesophageal reflux disease) (~05/2021) Surgical History Surgical History (Updated 06/27/24 @ 10:17 by Rick Leone MD) Status post total hip replacement, left S/P left hemicolectomy lap left hemicolectomy with anastomosis, da Maryuri assisted 09/01/22 History of total right hip replacement (~06/29/22) History of colon resection Hand assisted, laparoscopic left colon resection (distal transverse and proximal half of the descending colon). 06/23/21 Family History Family History Father Cancer Multiple Myeloma Mother Cancer Lung Social History Social History (Updated 06/27/24 @ 12:29 by Kishan Velazquez DO) Smoking packs per day: 1 Smoking cigarettes per day: 20.0 Years smoked: 10 Smoking pack-years: 10.00 Smoking status: Former smoker Tobacco type: cigarettes Second hand tobacco smoke exposure: No Smoking end date: 05/10/97 Alcohol intake: current Drinks per week: 17 Alcohol use details: 4-5 beers/day Substance use: never Substance use type: does not use Lack of Transportation: No Lack of Food: Never True Current Housing: I Have Housing Concerned About Future Housing: No Difficulty Paying Gas/Electric Bills: No Difficulty Paying for Meds: No Currently Unemployed: No Education: High School Diploma/GED Difficulty w/ Childcare or Family Care: No Living arrangements: with family Additional living arrangements comments: Occupation/Education: occupation 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 [employer] Gender identity (if verbalized by the patient): Male Sexual Orientation (if Verbalized by the Patient): Straight or Heterosexual Spiritual care concerns: No Anes - Eval Final PreProcedure Day of Procedure 06/27/24 11:53 Patient weight: obese Heart: regular rate and rhythm Lungs: clear to auscultation Airway: Mallampati scale class III Neurological: alert and oriented Last oral intake: >/= 8 hours ASA classification: III Emergent: no Anesthetic plan: proceed Anesthesia type and monitoring: general ETT and standard monitoring Results Review: All pre-operative results and documents have been reviewed as part of the pre- operative evaluation. Informed Consent: The patient's anesthetic plan and its attendant risks and benefits were discussed with the patient/family/POA. Questions were solicited and answers provided to the satisfaction of the patient/family/POA.
[2024-06-27] MEDS: ceFAZolin 2 GM/D5W 50 ML 2 GM/50 ML BAG IVPB (12:54)
[2024-06-27] MEDS: SODIUM CHLORIDE 0.9% IV 37.7 ML, MORPHINE SULFATE INJ (*CRX) 2 MG, ROPivacaine HCL 1% 2... INFILTRATE (13:34)
--- NOTE | 2024-06-27 15:32 | W.PM.PROC2 ---
Procedure Note - Detailed Date of Procedure 06/27/24 Pre-op Diagnosis Left hip degenerative arthritis. Post-op Diagnosis Same Procedure Performed Left Total Hip Arthroplasty Surgeon Rick Leone MD Cereal Miller Kendall Phelsp RN-FA Anesthesia General Findings Direct superior approach. Severe degenerative changes. Excellent bone quality. Type A femoral canal treated with reaming. Excellent final stability. Description of Procedure The patient was given preoperative antibiotics. A general anesthetic was administered. The patient was carefully placed in the lateral decubitus position on the PEG board. The shoulders and hips were carefully positioned for component and leg length positioning reference. The hip was prepped and draped in the usual sterile fashion. A longitudinal incision was created over the posterior aspect of the greater trochanter. Careful dissection was brought down through the deep fascia with electrocautery. The direct superior approach to the hip was performed. The gluteus javon fibers were split in line with their fibers. The conjoined tendon of the piriformis and obturator internus was removed from the femur and reflected. The sciatic nerve was protected. The capsulotomy was begun at the femur inferiorly along the neck and carried proximally. The capsule was elevated posteriorly inferior and posterior superior. The hip was dislocated. The femoral neck was cut according to preoperative templating measured from the center of the femoral head. The femoral head was removed. The acetabulum was carefully exposed. The labrum was resected. There was extensive calcified labrum posteriorly and inferiorly which was removed. The acetabulum was sequentially reamed to one over the intended cup size. The cup was impacted into position with excellent press-fit. Typical anatomic landmarks, including the bony contact points as well as the inferior transverse acetabular ligament were used to confirm cup positioning with preoperative templating. Attention was turned to the femur, which was carefully exposed. The hip was reamed and then broached sequentially. Flexible reaming was performed due to the type A canal. Excellent press-fit was obtained with the broach. The hip was trialed. Measurements were utilized, including the lesser trochanter as well as the center of the femoral head and the tip of the trochanter, and excellent assessment of the offset and leg lengths were confirmed. The real component was impacted into position. Trialing confirmed appropriate leg length and offset with soft tissue balancing as well apparent feel of the leg, both at the knee and the heel. The iliotibial band tension was optimal. The piriformis tendon reduced anatomically. The hip was copiously irrigated with pulsatile lavage periodically throughout the procedure. The real components were then assembled and reduced. The hip was stable throughout typical maneuvers, including extension, external rotation to 70 degrees, the position of sleep as well as flexion to 90 degrees with internal rotation past 35 degrees. The shake test confirmed stability without impingement. The capsule was repaired with a running Ethibond suture. Piriformis and obturator internus tendons were repaired to their origin. The deep fascia was repaired with running number 2 barbed suture, followed by 2-0 Stratafix suture and 3-0 Stratafix suture in the dermis. Steri-Strips were placed on the skin, followed by a sterile occlusive dressing. There were no complications. Meticulous hemostasis was maintained with the AquaMantys device. The patient was brought to the recovery room in stable condition. There were no complications. Implants The Accolade II hip stem, 132 degree size 6 , was utilized with excellent press-fit. The 54 mm Trident II acetabular component was impacted with excellent press-fit stability. 10 degree elevated polyethylene liner the +-2.5, 36 mm Biolox ceramic femoral head was utilized. Estimated Blood Loss 250 Drains No Packing No Pathology None sent Complications No immediate complications Condition Stable Disposition PACU [facility] Billing Surgery - Charge Forward: Surgery Billing
[2024-06-27] MEDS: LACTATED RINGERS 1,000 ML 30 ML IV CONT ×2 (16:06→16:07)
[2024-06-27] MEDS: fentaNYL CITRATE INJ (*CRX) 100 MCG/2 ML VIAL 25 MCG IV PUSH (16:21)
[2024-06-27] MEDS: oxyCODONE HCL (*CRX) 5 MG TAB IR PO (17:06)
== END 2024-06-27 17:55 | disposition home or self-care (01) ==
PROVIDERS: PCP Family Medicine; Visit Provider Orthopaedic Surgery
PROC: (CPT 27130; principal; 2024-06-27 13:00)
DX: M16.12 Unilateral primary osteoarthritis, left hip (principal); G89.29 Other chronic pain; I10 Essential (primary) hypertension; E78.5 Hyperlipidemia, unspecified; K21.9 Gastro-esophageal reflux disease without esophagitis; I44.0 Atrioventricular block, first degree; E66.9 Obesity, unspecified; Z68.32 Body mass index [BMI] 32.0-32.9, adult; Z79.1 Long term (current) use of non-steroidal anti-inflammatories (NSAID); Z79.82 Long term (current) use of aspirin; Z79.891 Long term (current) use of opiate analgesic; Z79.52 Long term (current) use of systemic steroids; Z98.890 Other specified postprocedural states; Z90.49 Acquired absence of other specified parts of digestive tract; Z87.891 Personal history of nicotine dependence; Z80.7 Family history of other malignant neoplasms of lymphoid, hematopoietic and related tissues; Z80.1 Family history of malignant neoplasm of trachea, bronchus and lung
CPT/HCPCS: 27130; 36415; 73502; 86850; 86900; 86901; 97110; 97161; 97165; 97530; 97535; A9270; C1713; J0171; J0690; J1100; J1171; J1885; J2003; J2250; J2270; J2405; J2704; J2795; J3010; J7120